=== PATIENT | female | born 1975 | race Caucasian/White ===

== ENCOUNTER 2016-11-03 01:02 | Emergency (ER) | payer SELFPAY ==
[~2016-11-03] VITALS: Ht 154.9 cm; Wt 78.0 kg
[2016-11-03 01:04] VITALS: BP 151/76; PULSE 78; RESP 16; TEMP 97.9; O2SAT 97
--- NOTE | 2016-11-03 01:48 | PD ---
HPI Chief Complaint: Injury Time Seen by Provider: 01:42 Travel History International Travel<30 days: No Contact w/Intl Traveler<30days: No Traveled to known affect area: No History of Present Illness HPI Patient comes in for evaluation of burning pain the plantar aspect her feet that occurred after she walked a hot concrete yesterday. Patient denies any radiation of pain. Patient denies doing anything for this. Patient denies anything making it better. Patient states the pain is worse with walking. Patient also has concerns over 3 abrasions she has on her feet that she is concerned is going to turn into MSSA. Patient whenever she gets sores like this they turn the MSSA. Patient denies doing anything for this or comes emergency Department. Patient states they've been there for a few days. Denies any pain with them. Denies anything making them better or worse. Denies any chest pain, shortness of breath, fevers, abdominal pain, headache, tingling anywhere, or loss or change in bowel or bladder. PFSH Past Medical History Medical History: Denies Significant Hx Social History Alcohol Use: Yes Tobacco Use: Yes Allergies-Medications (Allergen,Severity, Reaction): Uncoded Allergies: PAPER TAPE (Adverse Reaction, Severe, Rash, 11/03/16) Reported Meds & Prescriptions Reported Meds & Active Scripts Active Ibuprofen 600 Mg Tab 600 Mg PO Q8H PRN Bactrim DS (Sulfamethoxazole-Trimethoprim) 800-160 Mg Tab 1 Tab PO BID Mupirocin Topical (Mupirocin) 2 % Oint 1 Applic TOPICAL BID Review of Systems Except as stated in HPI: all other systems reviewed are Neg Physical Exam Narrative GENERAL: Well-developed, overly nourished, in no acute distress, and non-ill appearing. Unkempt appearing. SKIN: Focused skin assessment warm and dry. No lesions, blisters, abrasions, or obvious injuries the plantar surface of bilateral feet. Patient has 2 abrasions noted on the dorsal aspect of the right foot one on the dorsal aspect of the left foot a patient states she is concerned. There is no drainage, fluctuation, crepitus, erythematous, or other signs of infection around her feet. HEAD: Atraumatic. Normocephalic. EYES: Pupils equal and round. EOMI. No scleral icterus. No injection or drainage. ENT: No nasal bleeding or discharge. Mucous membranes pink and moist. NECK: Trachea midline. Supple. No nuclear rigidity. CARDIOVASCULAR: Dorsal pulses 2+, intact, and equal bilaterally. Capillary refill less than 2 seconds. RESPIRATORY: No accessory muscle use. No respiratory distress. MUSCULOSKELETAL: No obvious deformities. No clubbing. No cyanosis. No edema. Full range of motion. NEUROLOGICAL: Awake and alert. No obvious cranial nerve deficits. Motor grossly within normal limits. Normal speech. PSYCHIATRIC: Appropriate mood and affect; insight and judgment normal. Data Data Last Documented VS Vital Signs Date Time Temp Pulse Resp B/P Pulse Ox O2 Delivery O2 Flow Rate FiO2 11/03/16 01:04 97.9 78 16 151/76 97 Room Air MDM Medical Decision Making Medical Screen Exam Complete: Yes Emergency Medical Condition: No Differential Diagnosis Burn, abrasion, laceration, wound infection, other Narrative Course Patient is requesting oral antibiotics for her abrasions as she is concerned over it turning into MSSA as she states any time she gets wounds like this turns into a staph infection and is concerned that the ointment will not be enough. The patient has old abrasions. The abrasions are very superficial and nonrepairable. There was no evidence to suggest foreign bodies. Visual and tactile exams were unremarkable. There was no evidence of neurovascular injury as well. The patient was given signs and symptom warnings for infection, such as increasing pain, redness, swelling, associated heat, pus or fever. The patient was given instructions for timely follow up. The patient agreed with plan of care. Patient in no obvious distress upon re-evaluation. Patient was asked if they wanted to speak to my attending, which the patient did not wish to do at this time. Any questions/concerns in reference to patient diagnosis/condition discussed and clarified prior to patient's discharge. Reinforced sheer importance of close follow up with patient's primary physician or primary care clinic. Instructed patient to return to ED immediately, if symptoms return/ worsen. Pt showed understanding of above instructions. Further instructions and recommendations were detailed in discharge paperwork. Pt ambulated without difficulty out of ED at discharge. Diagnosis Primary Impression: Bilateral foot pain Additional Impression: Abrasions of multiple sites Referrals: [facility] Patient Instructions: Abrasion (ED), Acute Wound Care (ED), General Instructions Additional Instructions: Follow-up with your primary care physician in 3-5 days for reevaluation. Take all medication as prescribed. Keep wound dry and clean as possible using soap and water. Do not soak or submerge wounds. Return to the emergency department if symptoms get worse. Med/Other Pt SpecificInfo: Prescription(s) given Scripts Ibuprofen 600 Mg [id number] Mg PO Q8H PRN (PAIN) #14 TAB Ref 0 Prov:Christiano Bond MD 11/03/16 Sulfamethoxazole-Trimethoprim (Bactrim DS)800-160 Mg Tab1 Tab PO BID #14 TAB Ref 0 Prov:Christiano Bond MD 11/03/16 Mupirocin Topical 2 % Oint1 Applic TOPICAL BID #1 TUBE Ref 0 Prov:Christiano Bond MD 11/03/16 Disposition: 01 DISCHARGE HOME Condition: Stable Elias Wise Nov 03, 2016 01:48
[2016-11-03] MEDS ORDERED: MUPI2OIN TOPICAL (01:50)
[2016-11-03] MEDS ORDERED: BACT800T5 PO (01:50)
[2016-11-03] MEDS ORDERED: IBUP-232 PO (01:50)
== END 2016-11-03 02:08 | disposition home or self-care (01) ==
LOC: NEPD 01:02
DX: M79.671 Pain in right foot (principal); M79.672 Pain in left foot; S90.812A Abrasion, left foot, initial encounter; S90.811A Abrasion, right foot, initial encounter; Z72.0 Tobacco use; X58.XXXA Exposure to other specified factors, initial encounter; Y93.01 Activity, walking, marching and hiking; Y92.9 Unspecified place or not applicable; Y99.9 Unspecified external cause status
CPT/HCPCS: 99284

== ENCOUNTER 2016-11-03 04:43 | Emergency (ER) | payer SELFPAY ==
[~2016-11-03 04:43] MED LIST: BACT800T5 PO; IBUP-232 PO; MUPI2OIN TOPICAL
[2016-11-03 04:44] VITALS: BP 170/83; PULSE 72; RESP 18; TEMP 98.4; O2SAT 97
== END 2016-11-03 04:50 | disposition left against medical advice (07) ==
LOC: NED 04:43
DX: Z53.29 Procedure and treatment not carried out because of patient's decision for other reasons (principal)
CPT/HCPCS: 99281

== ENCOUNTER 2016-11-21 17:41 | Inpatient (IN) | payer MEDICAID ==
[~2016-11-21] VITALS: Ht 157.5 cm; Wt 65.0 kg
[2016-11-21 18:04] VITALS: BP 161/72; PULSE 74; RESP 20; O2SAT 97
[2016-11-21 18:09] VITALS: BP 161/72; PULSE 75; RESP 20; O2SAT 96
[2016-11-21] MEDS ORDERED: TETANUS/DIPHTHERIA TOXOID ADULT 0.5 ML VIAL IM ONE (18:15)
--- NOTE | 2016-11-21 18:21 | PD ---
HPI Chief Complaint: Seizure Time Seen by Provider: 17:56 Travel History International Travel<30 days: No Contact w/Intl Traveler<30days: No Traveled to known affect area: No History of Present Illness HPI 41-year-old female complains of headache, neck pain, left-sided chest wall pain , elbow pain. Patient states that she fell backward hit her head and started having seizure this afternoon. Patient states that she fell in shallow water. Patient denies loss of consciousness. Patient denies any visual change. Patient states that she has aching headache in the back of the head. Patient states that she had neck pain the back of the neck. Patient complained of sharp pain across the left chest wall area. Patient denies any shortness of breath. Patient denies any upper low back pain. Patient denies abdominal pain. Patient complaint laceration to right elbow. Patient states that she has mild pain on the posterior aspect of the right elbow. Patient denies any extremity injury. Patient's not sure of TD booster status. Patient states that she has history of seizure and was on Depakote. Patient states that she ran out of her medication a month ago. 20 12 PM. Patient now states that she was not on Depakote. Patient states that she was on Tegretol for seizure. Patient has not taken her psychiatric medication or Tegretol for the past month. PFSH Past Medical History Cardiovascular Problems: Yes (HTN ) Hepatitis: Yes (c) ?: Not LMP: 11/21 Tubal Ligation: Yes Past Surgical History Tonsillectomy: Yes Social History Alcohol Use: Yes Tobacco Use: Yes Substance Use: No Allergies-Medications (Allergen,Severity, Reaction): Uncoded Allergies: PAPER TAPE (Adverse Reaction, Severe, Rash, 11/03/16) Reported Meds & Prescriptions Reported Meds & Active Scripts Active Reported Zanaflex (Tizanidine HCl) 4 Mg Cap 4 Mg PO TID Neurontin (Gabapentin) 100 Mg Cap 100 Mg PO TID Review of Systems General / Constitutional: No: Fever Eyes: No: Visual changes HENT: Positive: Headaches, Neck Pain Cardiovascular: No: Chest Pain or Discomfort Respiratory: No: Shortness of Breath Gastrointestinal: No: Abdominal Pain Genitourinary: No: Dysuria Musculoskeletal: Positive: Pain Skin: No Rash Neurologic: No: Weakness Psychiatric: No: Depression Endocrine: No: Polydipsia Hematologic/Lymphatic: No: Easy Bruising Physical Exam Narrative GENERAL: Well-nourished, well-developed patient. SKIN: Focused skin assessment warm/dry. HEAD: Normocephalic. EYES: No scleral icterus. No injection or drainage. NECK: Supple, trachea midline. No JVD or lymphadenopathy. CARDIOVASCULAR: Regular rate and rhythm without murmurs, gallops, or rubs. RESPIRATORY: Breath sounds equal bilaterally. No accessory muscle use. GASTROINTESTINAL: Abdomen soft, non-tender, nondistended. MUSCULOSKELETAL: No cyanosis, or edema. BACK: Nontender without obvious deformity. No CVA tenderness. Neurologic exam: Patient's awake and alert. Patient moves all extremity well. Patient came in with c-collar on and was on backboard. Patient took c-collar off herself. Data Data Last Documented VS Vital Signs Date Time Temp Pulse Resp B/P Pulse Ox O2 Delivery O2 Flow Rate FiO2 11/21/16 19:40 76 18 157/77 98 Room Air Orders Complete Blood Count With Diff (11/21/16 18:05) Basic Metabolic Panel (Bmp) (11/21/16 18:05) Prothrombin Time / Inr (Pt) (11/21/16 18:05) Act Partial Throm Time (Ptt) (11/21/16 18:05) Valproic Acid (Depakene) (11/21/16 18:05) Thyroid Stimulating Hormone (11/21/16 18:05) Chest, Single Ap (11/21/16 18:05) Iv Access Insert/Monitor (11/21/16 18:05) Ecg Monitoring (11/21/16 18:05) Oximetry (11/21/16 18:05) Drug Screen, Random Urine (11/21/16 18:05) Alcohol (Ethanol) (11/21/16 18:05) Ct Brain W/O Iv Contrast(Rout) (11/21/16 18:05) Ct Cerv Spine W/O Contrast (11/21/16 18:05) Elbow, Limited (Ap&Lat) (11/21/16 18:05) Tetanus/Diphtheria Tox Adult (Tetanus/Di (11/21/16 18:15) Hydroxyzine Hcl Inj (Vistaril Inj) (11/21/16 20:15) Psych Screen (11/21/16 20:14) Labs Laboratory Tests Test 11/21/16 18:30 White Blood Count 12.6 TH/MM3 Red Blood Count 4.78 MIL/MM3 Hemoglobin 14.7 GM/DL Hematocrit 42.8 % Mean Corpuscular Volume 89.5 FL Mean Corpuscular Hemoglobin 30.8 PG Mean Corpuscular Hemoglobin 34.4 % Concent Red Cell Distribution Width 14.6 % Platelet Count 460 TH/MM3 Mean Platelet Volume 7.2 FL Neutrophils (%) (Auto) 55.1 % Lymphocytes (%) (Auto) 30.5 % Monocytes (%) (Auto) 11.1 % Eosinophils (%) (Auto) 2.5 % Basophils (%) (Auto) 0.8 % Neutrophils # (Auto) 6.9 TH/MM3 Lymphocytes # (Auto) 3.8 TH/MM3 Monocytes # (Auto) 1.4 TH/MM3 Eosinophils # (Auto) 0.3 TH/MM3 Basophils # (Auto) 0.1 TH/MM3 CBC Comment DIFF FINAL Differential Comment Prothrombin Time 10.8 SEC Prothromb Time International 1.0 RATIO Ratio Activated Partial 30.5 SEC Thromboplast Time Sodium Level 137 MEQ/L Potassium Level 3.6 MEQ/L Chloride Level 105 MEQ/L Carbon Dioxide Level 26.1 MEQ/L Anion Gap 6 MEQ/L Blood Urea Nitrogen 10 MG/DL Creatinine 0.74 MG/DL Estimat Glomerular Filtration 86 ML/MIN Rate Random Glucose 91 MG/DL Calcium Level 9.2 MG/DL Thyroid Stimulating Hormone 2.630 uIU/ML 3rd Gen Urine Opiates Screen NEG Urine Barbiturates Screen NEG Valproic Acid (Depakene) Level LESS THAN 3 MCG/ML Urine Amphetamines Screen POS Urine Benzodiazepines Screen NEG Urine Cocaine Screen NEG Urine Cannabinoids Screen POS Ethyl Alcohol Level LESS THAN 3 MG/DL MDM Medical Decision Making Medical Screen Exam Complete: Yes Emergency Medical Condition: Yes Interpretation(s) Last Impressions Head CT 11/21/161804 Signed Impressions: Service Date/Time: Monday, November 21, 2016 19:08 - CONCLUSION: No acute intracranial disease. Juan Astudillo MD Elbow X-Ray 11/21/161804 Signed Impressions: Service Date/Time: Monday, November 21, 2016 18:24 - CONCLUSION: Soft tissue swelling without fracture. Juan Astudillo MD Chest X-Ray 11/21/161804 Signed Impressions: Service Date/Time: Monday, November 21, 2016 18:21 - CONCLUSION: No acute disease. Juan Astudillo MD Cervical Spine CT 11/21/16 1805 Signed Impressions: Service Date/Time: Monday, November 21, 2016 19:08 - CONCLUSION: 1. No fracture. 2. There is minimal degenerative retrolisthesis C4-5. Juan Astudillo MD 2004 p.m. CBC WBC 12.6. Normal differential. BMP within normal limit. Valproic acid less than 3. Urine drug screen positive for amphetamines and cannabis. Differential Diagnosis Differential diagnosis including head injury, neck injury, extremity injury, laceration, breakthrough seizure. Narrative Course 41-year-old female with head injury, neck injury, chest were injury, right elbow injury. Patient fell and had a seizure episode subsequently. Patient has history of seizure and has not been taking her Depakote for the past month. 2009 p.m. Patient now states that she is not on Depakote. She was on Tegretol in the past. Patient states that she ran out of Tegretol a month ago. Patient also on multiple psychiatric medications in the past. Patient states that she ran out of medications for the past month. Patient requesting to see a psychiatrist. Patient does not want a prescription for Tegretol. Patient states that she can't afford her medication anyway. Diagnosis Primary Impression: Closed head injury Qualified Code: S09.90XA - Closed head injury, initial encounter Additional Impressions: Cervical strain Qualified Code: S16.1XXA - Cervical strain, initial encounter Laceration of right elbow Qualified Code: S51.011A - Laceration of right elbow, initial encounter Substance abuse Patient Instructions: General Instructions Med/Other Pt SpecificInfo: Prescription(s) given Scripts Sulfamethoxazole-Trimethoprim (Bactrim DS)800-160 Mg Tab1 Tab PO BID #20 TAB Prov:Jeff Pastor MD 11/21/16 Disposition: 01 DISCHARGE HOME Condition: Stable Jeff Pastor MD Nov 21, 2016 18:20
[2016-11-21 18:35] VITALS: O2SAT 96
[2016-11-21] MEDS ORDERED: NEUR100C PO (18:44)
[2016-11-21] MEDS ORDERED: ZANA4CAP PO (18:44)
--- NOTE | 2016-11-21 18:53 | RADRPT ---
EXAM DATE/TIME: 11/21/2016 18:21 [facility] COMPARISON: No previous studies available for comparison. INDICATIONS : Seizure. MEDICAL HISTORY : Unobtainable. SURGICAL HISTORY : Unobtainable. ENCOUNTER: Initial ACUITY: 1 day PAIN SCORE: 0/10 LOCATION: Bilateral chest FINDINGS: A single view of the chest demonstrates the lungs to be symmetrically aerated without evidence of mas s, infiltrate or effusion. The cardiomediastinal contours are unremarkable. Osseous structures are intact. CONCLUSION: No acute disease. Juan Astudillo MD on November 21, 2016 at 18:51 Board Certified Radiologist. This report was verified electronically.
--- NOTE | 2016-11-21 18:53 | RADRPT ---
EXAM DATE/TIME: 11/21/2016 18:24 [facility] COMPARISON: No previous studies available for comparison. INDICATIONS : Seizure. Fall. MEDICAL HISTORY : Unobtainable. SURGICAL HISTORY : Unobtainable. ENCOUNTER: Initial ACUITY: 1 day PAIN SCORE: 5/10 LOCATION: Right elbow FINDINGS: Two view examination of the right elbow demonstrates soft tissue swelling without joint effusion, fra cture or dislocation. Bony mineralization is normal. CONCLUSION: Soft tissue swelling without fracture. Juan Astudillo MD on November 21, 2016 at 18:51 Board Certified Radiologist. This report was verified electronically.
[2016-11-21 18:58] LABS: AUTOMATED NEUTROPHIL # 6.9 TH/MM3 (1.8-7.7); BASOPHIL # 0.1 TH/MM3 (0-0.2); BASOPHIL % 0.8 % (0.0-2.0); EOSINOPHIL # 0.3 TH/MM3 (0-0.4); EOSINOPHIL % 2.5 % (0.0-4.0); HEMATOCRIT 42.8 % (35.0-46.0); HEMO FLAGS DIFF FINAL; LYMPH % 30.5 % (9.0-44.0); LYMPHOCYTE # 3.8 TH/MM3 (1.0-4.8); MEAN CELL VOLUME 89.5 FL (80.0-100.0); MEAN CORPUSCULAR HEMOGLOBIN 30.8 PG (27.0-34.0); MEAN CORPUSCULAR HGB CONC 34.4 % (32.0-36.0); MONO % 11.1 % (0.0-8.0); NEUT % 55.1 % (16.0-70.0); PLATELET COUNT 460 TH/MM3 (150-450); RED BLOOD COUNT 4.78 MIL/MM3 (4.00-5.30); RED CELL DISTRIBUTION WIDTH 14.6 % (11.6-17.2); WHITE BLOOD COUNT 12.6 TH/MM3 (4.0-11.0)
[2016-11-21 19:04] LABS: APTT (PATIENT) 30.5 SEC (24.3-30.1); PROTHROMBIN TIME - PATIENT 10.8 SEC (9.8-11.6)
[2016-11-21 19:07] LABS: AMPHETAMINE, URINE POS (NEG); BARBITURATES, URINE NEG (NEG); COCAINE, URINE NEG (NEG)
--- NOTE | 2016-11-21 19:25 | RADRPT ---
EXAM DATE/TIME: 11/21/2016 19:08 [facility] COMPARISON: No previous studies available for comparison. INDICATIONS : Siezure today RADIATION DOSE: 30.55 CTDIvol (mGy) MEDICAL HISTORY : Cardiovascular disease. Hypertension. SURGICAL HISTORY : Tubal ligation. Hysterectomy. ENCOUNTER: Initial ACUITY: 1 day PAIN SCALE: 0/10 LOCATION: cranial TECHNIQUE: Multiple contiguous axial images were obtained of the head. Using automated exposure control and adj ustment of the mA and/or kV according to patient size, radiation dose was kept as low as reasonably a chievable to obtain optimal diagnostic quality images. DICOM format image data is available electro nically for review and comparison. FINDINGS: CEREBRUM: The ventricles are normal for age. No evidence of midline shift, mass lesion, hemorrhage or acute in farction. No extra-axial fluid collections are seen. POSTERIOR FOSSA: The cerebellum and brainstem are intact. The 4th ventricle is midline. The cerebellopontine angle i s unremarkable. EXTRACRANIAL: The visualized portion of the orbits is intact. SKULL: The calvaria is intact. No evidence of skull fracture. CONCLUSION: No acute intracranial disease. Juan Astudillo MD on November 21, 2016 at 19:23 Board Certified Radiologist. This report was verified electronically.
[2016-11-21 19:32] LABS: ANION GAP 6 MEQ/L (5-15); BICARBONATE 26.1 MEQ/L (21.0-32.0); BLOOD UREA NITROGEN 10 MG/DL (7-18); CHLORIDE 105 MEQ/L (98-107); GLOMERULAR FILTRATION RATE 86 ML/MIN (>89); POTASSIUM 3.6 MEQ/L (3.5-5.1); SODIUM (NA) 137 MEQ/L (136-145)
--- NOTE | 2016-11-21 19:38 | RADRPT ---
EXAM DATE/TIME: 11/21/2016 19:08 [facility] COMPARISON: No previous studies available for comparison. INDICATIONS : Seizure today,trauma to head and neck pain. RADIATION DOSE: 22.66 CTDIvol (mGy) MEDICAL HISTORY : Cardiovascular disease. Hypertension. SURGICAL HISTORY : Tubal ligation. Hysterectomy. ENCOUNTER: Initial ACUITY: 1 day PAIN SCALE: 0/10 LOCATION: neck TECHNIQUE: Volumetric scanning of the cervical spine was performed. Multiplanar reconstructions in the sagittal, coronal and oblique axial planes were performed. Using automated exposure control and adjustment o f the mA and/or kV according to patient size, radiation dose was kept as low as reasonably achievable to obtain optimal diagnostic quality images. DICOM format image data is available electronically f or review and comparison. FINDINGS: VERTEBRAE: Normal vertebral body height. ALIGNMENT: Minimal retrolisthesis C4 on C5 likely degenerative. C2-C3: The bony spinal canal is normal in size. No evidence of disc bulge or herniation. The neural forami na are bilaterally patent. C3-C4: The bony spinal canal is normal in size. No evidence of disc bulge or herniation. The neural forami na are bilaterally patent. C4-C5: The bony spinal canal is normal in size. No evidence of disc bulge or herniation. The neural forami na are bilaterally patent. C5-C6: The bony spinal canal is normal in size. No evidence of disc bulge or herniation. The neural forami na are bilaterally patent. C6-C7: The bony spinal canal is normal in size. No evidence of disc bulge or herniation. The neural forami na are bilaterally patent. C7-T1: The bony spinal canal is normal in size. No evidence of disc bulge or herniation. The neural forami na are bilaterally patent. CONCLUSION: 1. No fracture. 2. There is minimal degenerative retrolisthesis C4-5. Juan Astudillo MD on November 21, 2016 at 19:35 Board Certified Radiologist. This report was verified electronically.
[2016-11-21 19:40] VITALS: BP 157/77; PULSE 76; RESP 18; O2SAT 98
--- NOTE | 2016-11-21 20:09 | PD ---
Physical Exam Date Seen by Provider: Nov 21, 2016 Time Seen by Provider: 20:07 Narrative 41-year-old female that presents to the ED for evaluation of possible seizure. I was asked my attending to repair a laceration to her right elbow. Please refer to his note. Data Data Last Documented VS Vital Signs Date Time Temp Pulse Resp B/P Pulse Ox O2 Delivery O2 Flow Rate FiO2 11/21/16 19:40 76 18 157/77 98 Room Air Orders Complete Blood Count With Diff (11/21/16 18:05) Basic Metabolic Panel (Bmp) (11/21/16 18:05) Prothrombin Time / Inr (Pt) (11/21/16 18:05) Act Partial Throm Time (Ptt) (11/21/16 18:05) Valproic Acid (Depakene) (11/21/16 18:05) Thyroid Stimulating Hormone (11/21/16 18:05) Chest, Single Ap (11/21/16 18:05) Iv Access Insert/Monitor (11/21/16 18:05) Ecg Monitoring (11/21/16 18:05) Oximetry (11/21/16 18:05) Drug Screen, Random Urine (11/21/16 18:05) Alcohol (Ethanol) (11/21/16 18:05) Ct Brain W/O Iv Contrast(Rout) (11/21/16 18:05) Ct Cerv Spine W/O Contrast (11/21/16 18:05) Elbow, Limited (Ap&Lat) (11/21/16 18:05) Tetanus/Diphtheria Tox Adult (Tetanus/Di (11/21/16 18:15) Labs Laboratory Tests Test 11/21/16 18:30 White Blood Count 12.6 TH/MM3 Red Blood Count 4.78 MIL/MM3 Hemoglobin 14.7 GM/DL Hematocrit 42.8 % Mean Corpuscular Volume 89.5 FL Mean Corpuscular Hemoglobin 30.8 PG Mean Corpuscular Hemoglobin 34.4 % Concent Red Cell Distribution Width 14.6 % Platelet Count 460 TH/MM3 Mean Platelet Volume 7.2 FL Neutrophils (%) (Auto) 55.1 % Lymphocytes (%) (Auto) 30.5 % Monocytes (%) (Auto) 11.1 % Eosinophils (%) (Auto) 2.5 % Basophils (%) (Auto) 0.8 % Neutrophils # (Auto) 6.9 TH/MM3 Lymphocytes # (Auto) 3.8 TH/MM3 Monocytes # (Auto) 1.4 TH/MM3 Eosinophils # (Auto) 0.3 TH/MM3 Basophils # (Auto) 0.1 TH/MM3 CBC Comment DIFF FINAL Differential Comment Prothrombin Time 10.8 SEC Prothromb Time International 1.0 RATIO Ratio Activated Partial 30.5 SEC Thromboplast Time Sodium Level 137 MEQ/L Potassium Level 3.6 MEQ/L Chloride Level 105 MEQ/L Carbon Dioxide Level 26.1 MEQ/L Anion Gap 6 MEQ/L Blood Urea Nitrogen 10 MG/DL Creatinine 0.74 MG/DL Estimat Glomerular Filtration 86 ML/MIN Rate Random Glucose 91 MG/DL Calcium Level 9.2 MG/DL Thyroid Stimulating Hormone 2.630 uIU/ML 3rd Gen Urine Opiates Screen NEG Urine Barbiturates Screen NEG Valproic Acid (Depakene) Level LESS THAN 3 MCG/ML Urine Amphetamines Screen POS Urine Benzodiazepines Screen NEG Urine Cocaine Screen NEG Urine Cannabinoids Screen POS Ethyl Alcohol Level LESS THAN 3 MG/DL MDM Medical Record Reviewed: Yes Supervised Visit with WILFREDO: No Procedures Procedure Narrative LACERATION LOCATION: right elbow LENGTH: 1 cm NUMBER OF STITCHES/JAMES: 2 james REPAIR: The area of the laceration was prepped with Betadine and sterilely draped. The laceration was infiltrated with 1% Xylocaine. The wound was copiously irrigated and explored without evidence of foreign body, tendon injury or neurovascular injury. The wound was closed using sterile stapler. This was a 1 layer repair. A sterile dressing was applied. The patient was advised to keep the dressing clean and dry. Patient tolerated the procedure well. Lazaro Gilliland Nov 21, 2016 20:09
[2016-11-21] MEDS ORDERED: BACT800T5 PO (22:09)
--- NOTE | 2016-11-22 08:26 | PD.PSY.CON ---
Provisional Diagnosis Admission Date History of Present Illness Service Psychiatry Consult Requested By Primary Care Physician Unknown Past Family Social History Uncoded Allergies: PAPER TAPE (Adverse Reaction, Severe, Rash, 11/03/16) Active Scripts Sulfamethoxazole-Trimethoprim (Bactrim DS)800-160 Mg Tab1 Tab PO BID #20 TAB Prov:Jeff Pastor MD 11/21/16 Reported Medications Tizanidine (Zanaflex)4 Mg Cap4 Mg PO TID Ref 0 11/21/16 Gabapentin (Neurontin)100 Mg [id number] Mg PO TID #90 CAP Ref 0 11/21/16 Discontinued Scripts Ibuprofen 600 Mg [id number] Mg PO Q8H PRN (PAIN) #14 TAB Ref 0 Prov:Christiano Bond MD 11/03/16 Sulfamethoxazole-Trimethoprim (Bactrim DS)800-160 Mg Tab1 Tab PO BID #14 TAB Ref 0 Prov:Christiano Bond MD 11/03/16 Mupirocin Topical 2 % Oint1 Applic TOPICAL BID #1 TUBE Ref 0 Prov:Christiano Bond MD 11/03/16 Physical Exam Vital Signs Vital Signs Date Time Temp Pulse Resp B/P Pulse Ox O2 Delivery O2 Flow Rate FiO2 11/21/16 19:40 76 18 157/77 98 Room Air Assessment & Plan Assessment & Plan Estimated LOS: Bradly Lutz MD Nov 22, 2016 08:26
[2016-11-22] MEDS ORDERED: ACETAMINOPHEN 325 MG TAB PO ONE (09:00)
[2016-11-22] MEDS ORDERED: diphenhydrAMINE HCL 50 MG/ML VIAL IM STA (09:37)
[2016-11-22] MEDS ORDERED: LORazepam 2 MG/ML VIAL IM STA (09:37)
[2016-11-22] MEDS ORDERED: HALOPERIDOL LACTATE 5 MG/ML AMP IM STA (09:37)
[2016-11-22 10:12] VITALS: BP 146/64; PULSE 53; RESP 18; O2SAT 99
[2016-11-22] MEDS ORDERED: MAGNESIUM HYDROXIDE SUSP 30 ML CUP PO PRN (12:30)
[2016-11-22] MEDS ORDERED: ALUMINUM/MAGNESIUM/SIMETH 30 ML CUP PO PRN (12:30)
[2016-11-22] MEDS ORDERED: diphenhydrAMINE HCL 50 MG CAP PO PRN (12:30)
[2016-11-22] MEDS ORDERED: BENZTROPINE MESYLATE 2 MG/2 ML VIAL IM PRN (12:30)
[2016-11-22] MEDS ORDERED: LORazepam 2 MG/ML VIAL IM PRN (12:30)
[2016-11-22] MEDS ORDERED: BENZTROPINE MESYLATE 1 MG TAB PO PRN (12:30)
--- NOTE | 2016-11-22 12:36 | HHI.HP ---
Provisional Diagnosis Admission Date Nov 22, 2016 at 11:25 [place] I. 1. Brief psychotic disorder Rule out component of drug induced psychotic disorder Rule out primary psychotic illness or mood disorder with psychotic features Rule out raman-ictal psychosis 2. Polysubstance abuse including amphetamines and cannabinoids [place] II. Deferred [place] V. GAF is 30 presently Certification of Person's Competence To Provide Express and Informed Consent I have personally examined Luciana Lynn , a person being served at [facility] on, Nov 22, 2016 12:20. Express and informed consent means consent voluntarily given in writing, by a competent person, after sufficient explanation and disclosure of the subject matter involved to enable the person to make a knowing and willful decision without any element of force, fraud, deceit, duress, or other form of constraint or coercion. This person is 18 years of age or older, is not now known to be incompetent to consent to treatment with a guardian advocate, and does not have a health care surrogate or proxy currently making medical treatment decisions. I have found this person to be one of the following: [] Competent to provide express and informed consent, as defined above, for voluntary admission to this facility and is competent to provide express and informed consent for treatment. He/she has the consistent capacity to make well reasoned, willful, and knowing decisions concerning his or her medical or mental health treatment. The person fully and consistently understands the purpose of the admission for examination/placement and is fully capable of personally exercising all rights assured [place] [] Incompetent to provide express and informed consent to voluntary admission, and this is incompetent to provide express and informed consent to treatment. The person must be transferred to involuntary status and a petition for a guardian advocate filed with the Circuit Court. [x] Refusing to provide express and informed consent to voluntary admission but is competent to provide express and informed consent for treatment. The person must be discharged or transferred to involuntary status. Form shall be completed within 24 hours of a person's arrival at the receiving facility and filed in the clinical record of each person: 1. Admitted on a voluntary basis 2. Permitted to provide express and informed consent to his/her own treatment 3. Allowed to transfer from involuntary to voluntary status 4. Prior to permitting a person to consent to his or her own treatment after having been previously found incompetent to consent to treatment. History of Present Illness Capacity: Has Capacity HPI Ms. Lynn is a 41-year-old female with a reported history of borderline personality disorder and PTSD who presents on a voluntary basis with complaints of seizure. From the ED provider notes, it appears that the patient requested psychiatric evaluation. She is not under a Fish act at the time of my evaluation. Reviewing the electronic medical record, I see no prior psychiatric contact within our system. Patient seen and examined. Chart reviewed. Case discussed with nursing staff. On my examination today, the patient presents as extremely emotionally labile. She tells me that she came down from [place] to get her niece off the streets but wound up homeless herself. She has a pronounced jehovah's witness preoccupation and insists that she is hearing spiritual voices because "I live in the supernatural." She denies any command auditory hallucinations. She initially denies any suicidal ideation but then threatens to jump off of a bridge. She feels that she is possessed with "a demon spirit." She says that she is compelled to "bash my head" against a hard object in order to relieve herself of the demon spirit. She denies any homicidal ideation. Thought process with significant loosening of associations. Speech pressured. No depressive symptoms. Remainder of the psychiatric ROS is negative. Past psychiatric history: Patient reports a history of borderline personality disorder and PTSD. She was reportedly under the care of a psychiatrist in [place] but cannot remember what drugs that she was taking. She says that she was most recently psychiatrically admitted about 2 years ago and says that she had a suicidal overdose around the same time. She denies a history of nonsuicidal self-injurious behavior. Family history: Patient reports that her family is afflicted by "every disease" in psychiatry. She says that her daughter engages in nonsuicidal self- injurious behavior. Chemical dependency history: The patient reports that she has been using methamphetamines for the last few months. She also smokes cannabis. Social history: The patient is from [place]. She is homeless. She is with 3 children. She has 5 grandchildren. Denies any or legal history. She is a Yazidi. Denies any access to guns or firearms. Review of Systems ROS Limitations: Psychotic, Poor Historian Except as stated in HPI: all other systems reviewed are Neg Past Psych History Psychological trauma history No reported trauma history to me Violence risk - others (6 mos) Indeterminate. Patient is psychotic and unpredictable. Violence risk - self (6 mos) Elevated. Threatening suicide. Psychotic and unpredictable. Past Family Social History Uncoded Allergies: PAPER TAPE (Adverse Reaction, Severe, Rash, 11/03/16) Past Medical History Includes a history of seizure disorder on Depakote. Depakote level undetectable today. Active Scripts Sulfamethoxazole-Trimethoprim (Bactrim DS)800-160 Mg Tab1 Tab PO BID #20 TAB Prov:Jeff Pastor MD 11/21/16 Reported Medications Tizanidine (Zanaflex)4 Mg Cap4 Mg PO TID Ref 0 11/21/16 Gabapentin (Neurontin)100 Mg [id number] Mg PO TID #90 CAP Ref 0 11/21/16 Discontinued Scripts Ibuprofen 600 Mg [id number] Mg PO Q8H PRN (PAIN) #14 TAB Ref 0 Prov:Christiano Bond MD 11/03/16 Sulfamethoxazole-Trimethoprim (Bactrim DS)800-160 Mg Tab1 Tab PO BID #14 TAB Ref 0 Prov:Christiano Bond MD 11/03/16 Mupirocin Topical 2 % Oint1 Applic TOPICAL BID #1 TUBE Ref 0 Prov:Christiano Bond MD 11/03/16 Cannot give medication list to me because of her psychiatric impairment Patient's Strengths (min. 2) In a monitored setting. Verbally fluent. Physical Exam Physical exam completed by ED provider. On my examination today, the patient appears to be in no acute physical distress. No motor abnormalities noted although the patient is quite fidgety. No ictal activity appreciated. Labs and vitals reviewed: Vital Signs Vital Signs Date Time Temp Pulse Resp B/P Pulse Ox O2 Delivery O2 Flow Rate FiO2 11/22/16 10:12 53 18 146/64 99 Room Air Lab Results Laboratory Tests Test 11/21/16 18:30 White Blood Count 12.6 TH/MM3 Red Blood Count 4.78 MIL/MM3 Hemoglobin 14.7 GM/DL Hematocrit 42.8 % Mean Corpuscular Volume 89.5 FL Mean Corpuscular Hemoglobin 30.8 PG Mean Corpuscular Hemoglobin 34.4 % Concent Red Cell Distribution Width 14.6 % Platelet Count 460 TH/MM3 Mean Platelet Volume 7.2 FL Neutrophils (%) (Auto) 55.1 % Lymphocytes (%) (Auto) 30.5 % Monocytes (%) (Auto) 11.1 % Eosinophils (%) (Auto) 2.5 % Basophils (%) (Auto) 0.8 % Neutrophils # (Auto) 6.9 TH/MM3 Lymphocytes # (Auto) 3.8 TH/MM3 Monocytes # (Auto) 1.4 TH/MM3 Eosinophils # (Auto) 0.3 TH/MM3 Basophils # (Auto) 0.1 TH/MM3 CBC Comment DIFF FINAL Differential Comment Prothrombin Time 10.8 SEC Prothromb Time International 1.0 RATIO Ratio Activated Partial 30.5 SEC Thromboplast Time Sodium Level 137 MEQ/L Potassium Level 3.6 MEQ/L Chloride Level 105 MEQ/L Carbon Dioxide Level 26.1 MEQ/L Anion Gap 6 MEQ/L Blood Urea Nitrogen 10 MG/DL Creatinine 0.74 MG/DL Estimat Glomerular Filtration 86 ML/MIN Rate Random Glucose 91 MG/DL Calcium Level 9.2 MG/DL Thyroid Stimulating Hormone 2.630 uIU/ML 3rd Gen Urine Opiates Screen NEG Urine Barbiturates Screen NEG Valproic Acid (Depakene) Level LESS THAN 3 MCG/ML Urine Amphetamines Screen POS Urine Benzodiazepines Screen NEG Urine Cocaine Screen NEG Urine Cannabinoids Screen POS Ethyl Alcohol Level LESS THAN 3 MG/DL Last Impressions Head CT 11/21/161804 Signed Impressions: Service Date/Time: Monday, November 21, 2016 19:08 - CONCLUSION: No acute intracranial disease. Juan Astudillo MD Elbow X-Ray 11/21/161804 Signed Impressions: Service Date/Time: Monday, November 21, 2016 18:24 - CONCLUSION: Soft tissue swelling without fracture. Juan Astudillo MD Chest X-Ray 11/21/161804 Signed Impressions: Service Date/Time: Monday, November 21, 2016 18:21 - CONCLUSION: No acute disease. Juan Astudillo MD Cervical Spine CT 11/21/161804 Signed Impressions: Service Date/Time: Monday, November 21, 2016 19:08 - CONCLUSION: 1. No fracture. 2. There is minimal degenerative retrolisthesis C4-5. Juan Astudillo MD Mental Status Examination Patient is in hospital gown. She is somewhat disheveled. She is awake and alert and oriented to person and hospital at least. No motor abnormalities noted although the patient is quite fidgety. Speech is pressured and rambling. Focus and concentration impaired. Language and fund of knowledge difficult to assess because of the psychosis. Memory likely somewhat confabulated with psychotic features. Mood dysphoric and affect labile. Thought process with significant loosening of associations. Yazidism delusions noted. Appears internally preoccupied. Endorses suicidal ideation as noted above. No reported urge to hurt herself on the inpatient psychiatric unit. No homicidal ideation. Insight and judgment are presently poor. Assessment & Plan Problem List: (1) Brief psychotic disorder ICD Code: F23 (2) Polysubstance abuse ICD Code: F19.10 Assessment & Plan 41-year-old female with psychiatric history as detailed above who is presently voluntarily in the emergency room and requesting psychiatric evaluation. I find the patient to be quite emotionally labile with jehovah's witness delusions and making threats of suicide. My differential diagnosis would include a primary psychotic disorder, a mood disorder with psychotic features such as a bipolar disorder, a drug-induced psychotic disorder or a seizure related phenomenon. In any event, the patient appears severely decompensated with respect to her psychiatric symptomatology and requires psychiatric admission at this time for safety, observation and stabilization. Admit inpatient. I have completed a Fish act, and enlist the patient is much improved in the morning will likely require petition for involuntary psychiatric hospitalization. Consult to neurology given history of seizure. Check EEG. Seizure and fall precautions. I will resume Depakote DR at a dose of 500 mg twice daily, which is likely to be within the therapeutic range given her weight. Check LFTs. Platelets not decreased. Check CBC, CMP, lipid panel and hemoglobin A1c in the morning. Zyprexa 5 mg at bedtime for psychosis with plans to titrate to effect. Ativan as needed for anxiety, Cogentin as needed for EPS, Benadryl as needed for sleep. Vitals every shift. Counselor to see and to obtain collateral. Disposition planning. Estimated length of stay: 7-9 days. Discharge Planning Pending psychiatric stabilization Request HC Surrog/Guard Advoc?: No (not at this time) Bradly Jiang MD Nov 22, 2016 12:36
[2016-11-22 14:21] LABS: INDIRECT BILIRUBIN 0.5 MG/DL (0.0-0.8); TOTAL BILIRUBIN ADULT 0.7 MG/DL (0.2-1.0)
[2016-11-22] MEDS ORDERED: HALOPERIDOL LACTATE 5 MG/ML AMP IM PRN (15:30)
[2016-11-22] MEDS: ACETAMINOPHEN 325 MG TAB PO PRN ×2 (15:35→21:12)
[2016-11-22 16:00] VITALS: BP 143/67; PULSE 83; RESP 16; TEMP 98.3
--- NOTE | 2016-11-22 17:33 | MB ---
cc: SUDHA SALAS M.D. DATE OF CONSULTATION: 11/22/2016 DATE OF : 1975, 41 years old. REASON FOR CONSULTATION: History of seizure, antiepileptic use. HISTORY OF PRESENT ILLNESS: The patient is a 41-year-old woman. History is taken mostly from the chart with a history of borderline personality, PTSD with a history of seizures. She states she has had seizures since the age of 19, has been on possibly Tegretol. She cannot tell me the dose. She states 40 milligrams which is inaccurate. She states she may have been on Depakote at some point in time but has not been on it for some time, confused, concerned more about scabs on her arms and legs. She cannot tell me what type of seizures, why they occur, how many she has. She is awake and alert, but confused. She knows she is in the hospital. Pupils reactive. Face is symmetrical. Motor-figueredo she moves everything equally. I do not see any lateralizing weakness. Gait is withheld. She is in bed. LABORATORY DATA: Labs are reviewed. White count 12.6, platelets are 460,000. Her coag panel, PTT is 30.5. Chemistry: AST 55, ALT 58, total protein 8.6, albumin 4.4. TSH 2.63, hCG less than 1. Toxicology screen positive for cannabinoids, amphetamines. IMAGING STUDIES: CT head, no acute disease. IMPRESSION: The patient is a 41 year-old woman with possible history of epilepsy. Looking at the note from psychiatry they restarted her on Depakote 500 mg b.i.d. Certainly that can be continued, however watch her liver function studies. If there is an issue with that then certainly switch her over to carbamazepine and start her at 200 mg twice a day. Will get an EEG. Maintain seizure precautions and anticipate a followup Depakote level in 48 hours. Maintain seizure precautions and Ativan should there be a witnessed seizure. Continue current care. Please call with any questions or concerns. MD SAMMIE Ovalles/EMMANUEL /3:50 PM /4:48 PM
[2016-11-22] MEDS: DIVALPROEX DR 500 MG TABEC PO SCH (21:10)
[2016-11-22] MEDS: OLANZapine ODT 5 MG TAB PO SCH (21:10)
[2016-11-22] MEDS: LORazepam 1 MG TAB PO PRN (23:16)
[2016-11-23] MEDS: ACETAMINOPHEN 325 MG TAB PO PRN ×2 (02:33→07:05)
[2016-11-23 06:16] VITALS: BP 134/70; PULSE 101; RESP 18; TEMP 97.6; O2SAT 95
[2016-11-23] MEDS: LORazepam 1 MG TAB PO PRN ×2 (07:04→17:29)
[2016-11-23 08:54] LABS: AUTOMATED NEUTROPHIL # 24.6 TH/MM3 (1.8-7.7); BASOPHIL % 0.1 % (0.0-2.0); EOSINOPHIL % 0.1 % (0.0-4.0); LYMPH % 6.1 % (9.0-44.0); LYMPHOCYTE # 1.7 TH/MM3 (1.0-4.8); MEAN CELL VOLUME 90.8 FL (80.0-100.0); MONO % 8.2 % (0.0-8.0); NEUT % 85.5 % (16.0-70.0); PLATELET COUNT 465 TH/MM3 (150-450); RED BLOOD COUNT 5.06 MIL/MM3 (4.00-5.30); RED CELL DISTRIBUTION WIDTH 14.5 % (11.6-17.2); WHITE BLOOD COUNT 28.8 TH/MM3 (4.0-11.0)
[2016-11-23] MEDS: DIVALPROEX DR 500 MG TABEC PO SCH ×2 (09:00→20:55)
[2016-11-23] MEDS: REMOVE OLD PATCH T-DERMAL SCH (09:00)
[2016-11-23] MEDS: NICOTINE 21 MG/24 HR PATCH T-DERMAL SCH (09:00)
[2016-11-23 09:16] LABS: ALKALINE PHOSPHATASE 96 U/L (45-117); ALT (GPT) 49 U/L (10-53); ANION GAP 9 MEQ/L (5-15); AST (GOT) 46 U/L (15-37); BICARBONATE 24.6 MEQ/L (21.0-32.0); BLOOD UREA NITROGEN 4 MG/DL (7-18); CHLORIDE 99 MEQ/L (98-107); GLOMERULAR FILTRATION RATE 109 ML/MIN (>89); HDL CHOLESTEROL 83.9 MG/DL (40.0-60.0); LDL CHOLESTEROL 115 MG/DL (0-99); POTASSIUM 3.3 MEQ/L (3.5-5.1); SODIUM (NA) 133 MEQ/L (136-145)
[2016-11-23 09:36] LABS: HEMO FLAGS AUTO DIFF
[2016-11-23 10:21] LABS: BANDS 12 % (0-6); NEUTROPHIL # MANUAL DIFF 23.3 TH/MM3 (1.8-7.7); PLATELET ESTIMATE SMEAR HIGH (NORMAL); PLATELET MORPHOLOGY NORMAL (NORMAL); POLYS (SEG NEUTROPHILS) 69 % (16-70); SCAN/DIFF FINAL DIFF MANUAL; WBC DIFF SAMPLE 100
--- NOTE | 2016-11-23 10:43 | HHI.PYPN ---
Subjective Remarks Patient seen and examined with counselor and nurse. Chart reviewed. Case discussed with nursing staff who reports patient has been complaining of R elbow pain and has been presenting in a dramatic fashion. On my examination today, there is absolutely no evidence of ongoing psychosis. Her thought process is linear and logical. As reported by the nurse, she does complain of R elbow pain. Externalizing/cluster B personality traits noted. Affect somewhat labile and irritable. No SI or HI. No side effects from medications. No physical complaints. Review of Systems Except as stated in HPI: all other systems reviewed are Neg Objective Alert: Yes [place]: Person, Place (at least) Mood: Anxious Affect: Labile, Other (irritable) Memory Intact: Comment (intact on clinical exam) Hallucinations: Other (No AVH) Delusions: No Delusion Type: Other (No delusions) Suicidal: Ideation (No SI) Homicidal: Ideation (No HI) Insight/Judgment Fair Remarks No motoric abnormalities appreciated. Thought process linear. Speech a little loud and angry but otherwise within normal limits. Grooming and hygiene fair. I do appreciate a 4-5cm area of erythema and swelling on the posterior aspect of the right elbow. Nurse reported some purulence earlier, but I appreciate none now. Labs Test 11/23/16 07:08 White Blood Count 28.8 TH/MM3 Red Blood Count 5.06 MIL/MM3 Hemoglobin 15.2 GM/DL Hematocrit 46.0 % Mean Corpuscular Volume 90.8 FL Mean Corpuscular Hemoglobin 30.0 PG Mean Corpuscular Hemoglobin 33.0 % Concent Red Cell Distribution Width 14.5 % Platelet Count 465 TH/MM3 Mean Platelet Volume 7.2 FL Neutrophils (%) (Auto) 85.5 % Lymphocytes (%) (Auto) 6.1 % Monocytes (%) (Auto) 8.2 % Eosinophils (%) (Auto) 0.1 % Basophils (%) (Auto) 0.1 % Neutrophils # (Auto) 24.6 TH/MM3 Lymphocytes # (Auto) 1.7 TH/MM3 Monocytes # (Auto) 2.3 TH/MM3 Eosinophils # (Auto) 0.0 TH/MM3 Basophils # (Auto) 0.0 TH/MM3 CBC Comment AUTO DIFF Differential Total Cells 100 Counted Neutrophils % (Manual) 69 % Band Neutrophils % 12 % Lymphocytes % 10 % Monocytes % 9 % Neutrophils # (Manual) 23.3 TH/MM3 Differential Comment FINAL DIFF MANUAL Platelet Estimate HIGH Platelet Morphology Comment NORMAL Red Cell Morphology Comment NORMAL Sodium Level 133 MEQ/L Potassium Level 3.3 MEQ/L Chloride Level 99 MEQ/L Carbon Dioxide Level 24.6 MEQ/L Anion Gap 9 MEQ/L Blood Urea Nitrogen 4 MG/DL Creatinine 0.60 MG/DL Estimat Glomerular Filtration 109 ML/MIN Rate Random Glucose 118 MG/DL Calcium Level 9.1 MG/DL Total Bilirubin 1.0 MG/DL Aspartate Amino Transf 46 U/L (AST/SGOT) Alanine Aminotransferase 49 U/L (ALT/SGPT) Alkaline Phosphatase 96 U/L Total Protein 8.1 GM/DL Albumin 3.7 GM/DL Triglycerides Level 46 MG/DL Cholesterol Level 208 MG/DL LDL Cholesterol 115 MG/DL HDL Cholesterol 83.9 MG/DL Cholesterol/HDL Ratio 2.47 RATIO Labs reviewed. Leukocytosis noted. Mild hypokalemia noted; repleted. Vitals/IOs Vital Signs Date Time Temp Pulse Resp B/P Pulse Ox O2 Delivery O2 Flow Rate FiO2 11/23/16 06:16 97.6 101 18 134/70 95 11/22/16 10:12 Room Air Assessment & Plan Problem List: (1) Polysubstance abuse with drug-induced psychotic disorder, psychosis now resolved. F19.259. (2) Cluster B personality traits, rule out personality disorder Assessment & Plan Given rapid resolution of patient's psychotic symptoms, I now suspect these were largely substance-induced, although raman-ictal psychosis cannot be ruled out. I will continue patient's Zyprexa as ordered as this may help regulate affective lability that I suspect is related to cluster B personality style. Continue Depakote as ordered for history of seizure. VPA and ammonia level ordered. Neurology input appreciated. EEG pending. Consult to the hospitalist for elbow pain, leukocytosis; Bactrim DS BID; Ultram 50mg x 1; further management of this issue per hospitalist. Continue other medications and care as ordered. I have asked patient to sign into hospital voluntarily, and she has agreed. Justification for Cont. Inpt. Complicating condition. Risk for decompensation. Discharge Planning Pending stabilization. Request HC Surrog/Guard Advoc?: No Bradly Jiang MD Nov 23, 2016 10:43
[2016-11-23] MEDS ORDERED: traMADol HCL 50 MG TAB PO ONE (10:45)
[2016-11-23] MEDS ORDERED: SULFAMETHOXAZOLE-TRIMETHOPRIM DS 800-160 MG TAB PO SCH (11:00)
[2016-11-23] MEDS ORDERED: POTASSIUM CHLORIDE 20 MEQ CONTROLLED RELEASE TAB PO ONE (13:00)
[2016-11-23] MEDS ORDERED: Vancomycin Consult Pharmacy 1 EA OTHER SCH (15:45)
[2016-11-23] MEDS ORDERED: LACTOBACILLUS ACIDOPHILUS TAB PO ONE (15:45)
--- NOTE | 2016-11-23 16:30 | PD.CONS ---
[facility] By [facility]ry team Reason for Consult Leukocytosis, right elbow purulent drainage Primary Care Physician Unknown Diagnoses: History of Present Illness Written by Dru Soto, acting as scribe for Dr. Thomas on 11/23/16 at 16:03. This note was transcribed by meghann PEDROZA. I, Dr. La Thomas personally performed the history, physical exam, and medical decision making; and confirmed the accuracy of the information in the transcribed note. Authenticated by Dr. La Thomas 11/23/16 at 16:03. Patient is a 41-year-old female with primary medical history of seizure disorder, PTSD, borderline personality, hep C, HTN who came into the hospital for complaints of headache, neck pain, left-sided chest wall pain, elbow pain after a fall. Patient states she fell backward and hit her head because of his seizure episode. Patient states she landed puddle of murky water , the ground was slippery with algae. Patient was worked up in the ED, CT of the head showed no acute intracranial disease. Cervical spine CT showed no fracture. There is a minimal degenerative retrolisthesis C4 to C5. Chest x- ray showed no acute disease. Right elbow x-ray showed soft tissue swelling without fracture. She had a right elbow wound where in she said that in the ED they have with james in it. She is admitted to inpatient psychiatry unit for further evaluation of her psychiatric condition. Consulted for medical management of leukocytosis, right elbow. Drainage Patient complains of right elbow pain, swelling, it's been draining purulent drain. Patient reports fevers and chills unable to tell temperature but feels hot. Denies any headaches, chest pain, palpitations, dizziness. Denies abdominal pain, dysuria, nausea, vomiting, diarrhea. Review of Systems Except as stated in HPI: all other systems reviewed are Neg Past Family Social History Allergies: Uncoded Allergies: PAPER TAPE (Adverse Reaction, Severe, Rash, 11/03/16) Past Medical History PTSD Borderline personality Seizures. Hepatitis C - not started on any medication and process to go to GI doctors in [place] Hypertension Past Surgical History Plates place on her left arm Both tubes are tied Reported Medications Reported Meds & Active Scripts Active Bactrim DS (Sulfamethoxazole-Trimethoprim) 800-160 Mg Tab 1 Tab PO BID Reported Zanaflex (Tizanidine HCl) 4 Mg Cap 4 Mg PO TID Neurontin (Gabapentin) 100 Mg Cap 100 Mg PO TID Active Ordered Medications Current Medications Medications (Trade) Dose Ordered Sig/Mai Route Start Time Stop Time Status Last Admin (Ativan) 1 mg Q6H PRN PO 11/22/16 12:30 11/23/16 07:04 (Ativan Inj) 1 mg Q6H PRN IM 11/22/16 12:30 11/23/16 10:40 (Benadryl) 50 mg HS PRN PO 11/22/16 12:30 (Tylenol) 650 mg Q4H PRN PO 11/22/16 12:30 11/23/16 07:05 (Milk Of Magnesia Liq) 30 ml DAILY PRN PO 11/22/16 12:30 (Mag-Al Plus Susp Liq) 30 ml Q6H PRN PO 11/22/16 12:30 (Habitrol 21 Mg Patch.24 Hr) 1 patch DAILY T-DERMAL 11/23/16 09:00 11/23/16 09:00 (Cogentin) 1 mg Q12H PRN PO 11/22/16 12:30 11/22/16 21:13 (Cogentin Inj) 1 mg Q12H PRN IM 11/22/16 12:30 Miscellaneous Information 1 DAILY T-DERMAL 11/23/16 09:00 11/23/16 09:00 (ZyPREXA ZYDIS ODT) 5 mg HS PO 11/22/16 21:00 11/22/16 21:10 Divalproex Sodium 500 mg 500 mg BID PO 11/22/16 21:00 11/23/16 09:00 Pharmacy Profile Note 0 ml @ 0 mls/hr UNSCH OTHER 11/23/16 15:45 (Vancomycin Inj/ NS 250 ml Inj) 250 ml @ 250 mls/hr Q12H IV 11/23/16 16:00 (Lactinex) 1 tab Q12HR PO 11/23/16 21:00 (Lactinex) 1 tab ONCE ONCE PO 11/23/16 15:45 11/23/16 15:46 ([place] 5-325 Mg) 1 tab Q4H PRN PO 11/23/16 15:45 Miscellaneous Information SPECIFIC LAB TO BE DRAWN:VANCOMYCIN TROUGH DATE TO... ONCE ONCE .XX 11/25/16 03:45 11/25/16 03:46 Family History Heart problems, and mental problems in the family And has renal cancer, grandmother has breast cancer Social History Occasional alcohol use Current day smoker 1 pack per day Illicit drug use, smokes cannabis, IV drug use amphetamines last use was 3 days ago - injects on the left forearm Physical Exam Vital Signs Vital Signs Date Time Temp Pulse Resp B/P Pulse Ox O2 Delivery O2 Flow Rate FiO2 11/23/16 06:16 97.6 101 18 134/70 95 Physical Exam GENERAL: This is a disheveled, well-developed patient, in no apparent distress. SKIN: No rashes, ecchymoses or lesions. Cool and dry. HEAD: Normocephalic. No temporal or scalp tenderness. EYES: Pupils equal round and reactive. No scleral icterus. No injection or drainage. ENT: Nose without bleeding. Throat without erythema. Uvula midline. Airway patent. NECK: Trachea midline. CARDIOVASCULAR: Regular rate and rhythm without murmurs, gallops, or rubs. RESPIRATORY: Clear to auscultation. Breath sounds equal bilaterally. No wheezes , rales, or rhonchi. GASTROINTESTINAL: Abdomen soft, non-tender, nondistended. Bowel sounds active 4. No guarding. MUSCULOSKELETAL: Extremities without clubbing, cyanosis, or edema. Right elbow edema, erythema, purulent drainage, [address] NEUROLOGICAL: Awake and alert. No focal neuro deficit. Motor and sensory grossly within normal limits. Normal speech. Laboratory Laboratory Tests Test 11/23/16 11/23/16 07:08 14:41 White Blood Count 28.8 Red Blood Count 5.06 Hemoglobin 15.2 Hematocrit 46.0 Mean Corpuscular Volume 90.8 Mean Corpuscular Hemoglobin 30.0 Mean Corpuscular Hemoglobin 33.0 Concent Red Cell Distribution Width 14.5 Platelet Count 465 Mean Platelet Volume 7.2 Neutrophils (%) (Auto) 85.5 Lymphocytes (%) (Auto) 6.1 Monocytes (%) (Auto) 8.2 Eosinophils (%) (Auto) 0.1 Basophils (%) (Auto) 0.1 Neutrophils # (Auto) 24.6 Lymphocytes # (Auto) 1.7 Monocytes # (Auto) 2.3 Eosinophils # (Auto) 0.0 Basophils # (Auto) 0.0 CBC Comment AUTO DIFF Differential Total Cells 100 Counted Neutrophils % (Manual) 69 Band Neutrophils % 12 Lymphocytes % 10 Monocytes % 9 Neutrophils # (Manual) 23.3 Differential Comment FINAL DIFF MANUAL Platelet Estimate HIGH Platelet Morphology Comment NORMAL Red Cell Morphology Comment NORMAL Sodium Level 133 Potassium Level 3.3 Chloride Level 99 Carbon Dioxide Level 24.6 Anion Gap 9 Blood Urea Nitrogen 4 Creatinine 0.60 Estimat Glomerular Filtration 109 Rate Random Glucose 118 Calcium Level 9.1 Total Bilirubin 1.0 Aspartate Amino Transf 46 (AST/SGOT) Alanine Aminotransferase 49 (ALT/SGPT) Alkaline Phosphatase 96 Total Protein 8.1 Albumin 3.7 Triglycerides Level 46 Cholesterol Level 208 LDL Cholesterol 115 HDL Cholesterol 83.9 Cholesterol/HDL Ratio 2.47 Lactic Acid Level 2.3 Date/Time Procedure Status Source Growth 11/23/16 14:50 Aerobic Blood Culture Received Blood Peripheral Pending 11/23/16 14:50 Anaerobic Blood Culture Received Blood Peripheral Pending Result Diagram: 11/23/1608 11/23/16707 Imaging Last Impressions Head CT 11/21/161804 Signed Impressions: Service Date/Time: Monday, November 21, 2016 19:08 - CONCLUSION: No acute intracranial disease. Juan Astudillo MD Elbow X-Ray 11/21/161804 Signed Impressions: Service Date/Time: Monday, November 21, 2016 18:24 - CONCLUSION: Soft tissue swelling without fracture. Juan Astudillo MD Chest X-Ray 11/21/161804 Signed Impressions: Service Date/Time: Monday, November 21, 2016 18:21 - CONCLUSION: No acute disease. Juan Astudillo MD Cervical Spine CT 11/21/161804 Signed Impressions: Service Date/Time: Monday, November 21, 2016 19:08 - CONCLUSION: 1. No fracture. 2. There is minimal degenerative retrolisthesis C4-5. Juan Astudillo MD Assessment and Plan Problem List: (1) Laceration of right elbow ICD Code: S51.011A Status: Acute (2) Polysubstance abuse with drug-induced psychotic disorder, psychosis now resolved. F19.259. Status: Acute (3) Sepsis affecting skin ICD Code: A41.9 Status: Acute (4) HTN (hypertension) ICD Code: I10 Status: Chronic (5) Polysubstance abuse ICD Code: F19.10 Status: Acute Assessment and Plan Patient is a 41-year-old female with primary medical history of seizure disorder, PTSD, borderline personality, hep C, HTN who came into the hospital for complaints of headache, neck pain, left-sided chest wall pain, elbow pain after a fall. Patient states she fell backward and hit her head because of his seizure episode. Patient states she landed puddle of murky water , the ground was slippery with algae. Patient was worked up in the ED, CT of the head showed no acute intracranial disease. Cervical spine CT showed no fracture. There is a minimal degenerative retrolisthesis C4 to C5. Chest x- ray showed no acute disease. Right elbow x-ray showed soft tissue swelling without fracture. She had a right elbow wound where in she said that in the ED they have with james in it. She is admitted to inpatient psychiatry unit for further evaluation of her psychiatric condition. Consulted for medical management. Borderline personality, PTSD - Managed by psychiatry team Sepsis, SIRS Right elbow Cellulitis versus septic arthritis - Leukocytosis 28.8, neutrophilia 85.5, tachycardia 101 - Right elbow x-ray showed soft tissue swelling without fracture - Check lactic acid, check blood cultures, check wound culture - Start vancomycin IV - Pain management with [place] for now. Reiterated with patient [place] a short- term. - Repeat labs in the morning CBC, CMP - Consult orthopedics to check for septic arthritis Seizure - Neurology consulted and recommended EEG - Restarted on Depakote - Seizure precaution Substance abuse - Patient counseled regarding IV drug use and risk for skin infection and abscesses - Verbalized understanding and reaching out for help place on rehabilitation Hypokalemia - Potassium replacement - Check potassium level perry DVT prop ambulatory Code Status Full code Discussed Condition With Patient, nursing Problem Qualifiers (1) Laceration of right elbow: Qualified Code: S51.011A - Laceration of right elbow, initial encounter Dru Germain Nov 23, 2016 16:30 La Thomas MD Nov 24, 2016 08:50
[2016-11-23 16:57] LABS: LACTIC ACID GHOST NOT REPORTABLE
[2016-11-23 17:09] LABS: HEMOGLOBIN A1a 1.3 %; HEMOGLOBIN A1b 0.9 %; HEMOGLOBIN Ao 85.1 %; HEMOGLOBIN LA1C 2.2 %; HEMOGLOBIN P3 3.7 %
[2016-11-23] MEDS: ACETAMINOPHEN/HYDROcodone 325 MG/5 MG TAB PO PRN ×2 (17:29→22:00)
[2016-11-23] MEDS: VANCOMYCIN INJ 1,000 MG in SODIUM CHLOR 0.9% 250 ML INJ 250 ML IV SCH (19:01)
[2016-11-23] MEDS: OLANZapine ODT 5 MG TAB PO SCH (20:55)
[2016-11-23] MEDS: LACTOBACILLUS ACIDOPHILUS TAB PO SCH (20:55)
--- NOTE | 2016-11-23 21:17 | EKG ---
Date Performed: 11/23/2016 Time Performed: 12:26:52 PTAGE: 41 years EKG: Sinus rhythm NORMAL ECG NO PREVIOUS TRACING DOCTOR: Dasia Taylor Interpretating Date/Time 11/23/2016 21:16:42
--- NOTE | 2016-11-23 22:33 | MG ---
cc: ALYSSA MARTINEZ MD Lab No: [id number] Date: 11/23/2016 Age: 41 Sex: F Race: DATE OF 1975 A 41-year-old with a ___ headache, seizure. Stage II sleep with spindles and K complexes at the beginning of the recording. Head jerk noted EPOCH 32. Single lead EKG showing sinus tachycardia it appears. INTERPRETATION Mainly stage II sleep throughout the recording. Clinical correlation. Alyssa Martinez MD MG/EO /9:09 PM /10:19 PM
[2016-11-24] MEDS: VANCOMYCIN INJ 1,000 MG in SODIUM CHLOR 0.9% 250 ML INJ 250 ML IV SCH ×2 (04:00→16:00)
[2016-11-24] MEDS: ACETAMINOPHEN/HYDROcodone 325 MG/5 MG TAB PO PRN ×5 (04:47→21:23)
[2016-11-24 06:26] VITALS: BP 115/60; PULSE 82; RESP 16; TEMP 98.8
[2016-11-24] MEDS: LORazepam 1 MG TAB PO PRN ×3 (07:00→21:23)
[2016-11-24] MEDS: REMOVE OLD PATCH T-DERMAL SCH (09:00)
--- NOTE | 2016-11-24 10:19 | RADRPT ---
EXAM DATE/TIME: 11/24/2016 09:24 [place] COMPARISON: ELBOW RIGHT LIMITED (AP & LAT), November 21, 2016, 18:24. INDICATIONS : Purulent drainage from left elbow. RADIATION DOSE: 11.61 CTDIvol (mGy) MEDICAL HISTORY : Hypertension. SURGICAL HISTORY : Tubal ligation. ENCOUNTER: Initial ACUITY: 1 day PAIN SCALE: 6/10 LOCATION: Right elbow TECHNIQUE: Volumetric scanning of the elbow was performed. Using automated exposure control and adjustment of t he mA and/or kV according to patient size, radiation dose was kept as low as reasonably achievable to obtain optimal diagnostic quality images. DICOM format image data is available electronically for r eview and comparison. FINDINGS: BONES: No evidence of fracture. Alignment is within normal limits. JOINTS: No evidence of joint narrowing or effusion. SOFT TISSUES: Diffuse soft tissue swelling is noted surrounding the right elbow predominantly along the extensor bullock rfaces consistent with probable cellulitis without underlying soft tissue abscess. Muscles, tendons a nd neurovascular structures are grossly unremarkable. No evidence of mass, organized fluid collection , or foreign body. CONCLUSION: 1. Diffuse soft tissue swelling surrounding the right elbow predominantly along the extensor surface consistent with probable cellulitis without underlying soft tissue abscess. 2. No acute fracture, dislocation or elbow joint effusion. Messi Kirk MD on November 24, 2016 at 10:04 Board Certified Radiologist. This report was verified electronically.
[2016-11-24] MEDS: LACTOBACILLUS ACIDOPHILUS TAB PO SCH ×2 (10:24→21:00)
[2016-11-24] MEDS: DIVALPROEX DR 500 MG TABEC PO SCH ×2 (10:24→21:00)
[2016-11-24] MEDS: NICOTINE 21 MG/24 HR PATCH T-DERMAL SCH (10:26)
--- NOTE | 2016-11-24 12:37 | MB ---
cc: MERLINE GRAHAM DATE OF CONSULTATION 11/24/2016 REASON FOR CONSULTATION Cellulitis of the right arm. HISTORY This patient is a 41-year-old female who was admitted to the [facility] on 11/21/2016. The patient has a history of a laceration of the right elbow treated with suturing and metal james. The patient was admitted to the emergency room. Apparently she fell backwards, hit her head, and started having a seizure. The patient apparently fell in shallow water. She denied any loss of consciousness. She denied any visual change or headaches. She had a laceration of her right elbow which was sutured in the emergency room. The patient was admitted to the [facility] with a diagnosis of closed head injury with a cervical strain, laceration of the right elbow and substance abuse. The patient was also on her medications for psychiatric disease. I have been asked see her in consultation regarding the same. PAST MEDICAL HISTORY Significant for: 1. Hypertension 2. Hepatitis C 3. Previous tubal ligation SOCIAL HISTORY She admits to ethanol and tobacco. Denies substance abuse. REVIEW OF SYSTEMS Noncontributory PHYSICAL EXAMINATION The patient has been sedated with pain medication. She is alert cooperative and reasonable. Her right elbow, the bandage was taken down. There has been some drainage. I cannot feel any fluctuance. There are two james that are seen right next to an abrasion. Moderate swelling is seen distally and proximally. Review of CT scan the right elbow. No fluid collection is seen. Two metallic james were seen. In this region, there is swelling that extends distally and proximally consistent with cellulitis. I have reviewed the radiologist interpretation who agrees. IMPRESSION 1. Cellulitis of the right elbow. 2. History a laceration. PLAN 1. Remove james. 2. Dressing change. 3. We will have to watch this. If an abscess develops, she might need I&D in the operating room. MD DOMINGO Cadena/ANNE /11:25 AM /12:26 PM
--- NOTE | 2016-11-24 15:24 | HHI.PR ---
Subjective Remarks In bed, says she has pain in her R elbow. With erythema and edema, same. No fever or chills. No n/v/d/c. Objective Vitals Vital Signs Date Time Temp Pulse Resp B/P Pulse Ox O2 Delivery O2 Flow Rate FiO2 11/24/16 06:26 98.8 82 16 115/60 11/23/16 18:30 16 I/O 11/23/16 11/23/16 11/23/16 11/24/16 11/24/16 11/24/16 07:00 15:00 23:00 07:00 15:00 23:00 Intake Total 0 ml 240 ml Balance 0 ml 240 ml Intake Oral 0 ml 240 ml Result Diagram: 11/23/16 0708 11/23/16 0708 Imaging Last Impressions Upper Extremity CT 11/24/16931 Signed Impressions: Service Date/Time: October 09:24 - CONCLUSION: 1. Diffuse soft tissue swelling surrounding the right elbow predominantly along the extensor surface consistent with probable cellulitis without underlying soft tissue abscess. 2. No acute fracture, dislocation or elbow joint effusion. Messi Kirk MD Head CT 11/21/161804 Signed Impressions: Service Date/Time: Monday, November 21, 2016 19:08 - CONCLUSION: No acute intracranial disease. Juan Astudillo MD Elbow X-Ray 11/21/161804 Signed Impressions: Service Date/Time: Monday, November 21, 2016 18:24 - CONCLUSION: Soft tissue swelling without fracture. Juan Astudillo MD Chest X-Ray 11/21/161804 Signed Impressions: Service Date/Time: Monday, November 21, 2016 18:21 - CONCLUSION: No acute disease. Juan Astudillo MD Cervical Spine CT 11/21/161804 Signed Impressions: Service Date/Time: Monday, November 21, 2016 19:08 - CONCLUSION: 1. No fracture. 2. There is minimal degenerative retrolisthesis C4-5. Juan Astudillo MD Objective Remarks GENERAL: This is a disheveled, well-developed patient, in no apparent distress. CARDIOVASCULAR: Regular rate and rhythm without murmurs, gallops, or rubs. RESPIRATORY: Clear to auscultation. Breath sounds equal bilaterally. No wheezes , rales, or rhonchi. GASTROINTESTINAL: Abdomen soft, non-tender, nondistended. Bowel sounds active 4. No guarding. MUSCULOSKELETAL: Lower Extremities without clubbing, cyanosis, or edema. Right elbow edema, erythema, purulent drainage, dressing in place, c/d/i NEUROLOGICAL: Awake and alert. No focal neuro deficit. Motor and sensory grossly within normal limits. Normal speech. A/P Problem List: (1) Laceration of right elbow ICD Code: S51.011A Status: Acute (2) Polysubstance abuse with drug-induced psychotic disorder, psychosis now resolved. F19.259. Status: Acute (3) Sepsis affecting skin ICD Code: A41.9 Status: Acute (4) HTN (hypertension) ICD Code: I10 Status: Chronic (5) Polysubstance abuse ICD Code: F19.10 Status: Acute Assessment and Plan Patient is a 41-year-old female with primary medical history of seizure disorder, PTSD, borderline personality, hep C, HTN who came into the hospital for complaints of headache, neck pain, left-sided chest wall pain, elbow pain after a fall. Patient states she fell backward and hit her head because of his seizure episode. Patient states she landed puddle of murky water , the ground was slippery with algae. Patient was worked up in the ED, CT of the head showed no acute intracranial disease. Cervical spine CT showed no fracture. There is a minimal degenerative retrolisthesis C4 to C5. Chest x- ray showed no acute disease. Right elbow x-ray showed soft tissue swelling without fracture. She had a right elbow wound where in she said that in the ED they have with james in it. She is admitted to inpatient psychiatry unit for further evaluation of her psychiatric condition. Consulted for medical management. Borderline personality, PTSD - Managed by psychiatry team Sepsis, SIRS Right elbow Cellulitis versus septic arthritis - Leukocytosis 28.8, neutrophilia 85.5, tachycardia 101 on 11/23 - Right elbow x-ray showed soft tissue swelling without fracture - Check lactic acid, check blood cultures, check wound culture pending - Start vancomycin IV. - Pain management with [place] for now. Reiterated with patient [place] a short- term. - Repeat labs in the morning CBC, CMP - Consult orthopedics. CT elbow rev and no abscess. Seizure - Neurology consulted and recommended EEG - Restarted on Depakote - Seizure precaution Substance abuse - Patient counseled regarding IV drug use and risk for skin infection and abscesses - Verbalized understanding and reaching out for help place on rehabilitation Hypokalemia - Potassium replacement - Check potassium level per[place] DVT prop ambulatory Code Status Full code Discussed Condition With Patient, nurse, psychiatry Dr Beach Problem Qualifiers (1) Laceration of right elbow: Qualified Code: S51.011A - Laceration of right elbow, initial encounter La Thomas MD Nov 24, 2016 15:24
[2016-11-24] MEDS ORDERED: KETOROLAC TROMETHAMINE 30 MG/ML (IVP) VIAL IV PUSH PRN (15:30)
--- NOTE | 2016-11-24 16:06 | HHI.PYPN ---
Subjective Remarks Patient is a 41-year-old woman, with 3 children, 5 grandchildren, undomiciled, with a past psychiatric history of borderline personality disorder, PTSD, methamphetamine and cannabis use disorder, previous psychiatric hospitalization, one suicide attempt via overdose about 2 years ago , no history of self-injurious behavior, past medical history of hypertension, hep C, history of seizure disorder, who was seen in the emergency department and admitted to the inpatient psychiatric unit on 11/22/2016 for psychosis in the context of substance intoxication. Patient was started on olanzapine ODT 5 mg at bedtime. Yesterday patient was followed up and was found to have had rapid resolution of psychotic symptoms. Patient had complained of right elbow pain and hospitalist was consulted for the same and psychosis noted lab results. Primary medical team evaluate patient yesterday and IV antibiotics were recommended and therefore patient was transferred to the medical/ psychiatric unit for further management. Patient was seen today with social service agency director/counselor; chart reviewed. Patient was found lying on hospital bed awake watching television, calm and cooperative in interview. Patient reports that prior to coming to the ER she had a seizure and hit her elbow stated that she was I was confused, I was thinking I was possessed. Patient states that she is a child of God and denied having any suicidal ideations when asked about her statement of wanting to jump from a bridge in the ER. Patient states that she has no thoughts of wanting to end her life and that she has children and her graduates live for. Patient admits to having had substance use) the ER and is amenable to the idea of going into rehabilitation program. Patient denies any depressed symptoms state sleeping okay aside from some pain from her right elbow laceration, energy and concentration were okay mood lately being all right. She denies any manic or psychotic symptoms at this time patient denies any suicidal or homicidal ideations, denies any perceptual disturbances. Patient reports that she is planning to go back to [place] once discharged from the hospital. Patient reports that she is currently homeless here in [place] which is why she plans to go back to [place]. Currently patient states feeling okay denies any suicidal or homicidal ideations. Preliminary blood cultures results shows no bacterial growth at this time. Labs (11/23/16): Reviewed Review of Systems Other No other somatic complaints Objective Alert: Yes [place]: Person, Place (at least), Date, Situation Mood: Calm Affect: Appropriate Memory Intact: Comment (intact on clinical exam) Hallucinations: Other (No AVH) Delusions: No Delusion Type: Other (No delusions) Suicidal: Ideation (No SI) Homicidal: Ideation (No HI) Insight/Judgment Fair insight, fair impulse control, poor judgment Remarks Patient appears stated age, found lying in hospital bed in [facility], fair hygiene, mildly disheveled, calm and cooperative with interview, fair eye contact, speech normal tone and volume and prosody. Language fluid and spontaneous. Labs Test 11/23/16 18:52 Lactic Acid Level 1.4 mmol/L Date/Time Procedure Status Source Growth 11/24/16 09:30 Gram Stain Received Wound Elbow Pending 11/24/16 09:30 Wound Culture Received Wound Elbow Pending 11/23/16 14:50 Aerobic Blood Culture - Preliminary Resulted Blood Peripheral NO GROWTH IN 1 DAY 11/23/16 14:50 Anaerobic Blood Culture - Preliminary Resulted Blood Peripheral NO GROWTH IN 1 DAY Vitals/IOs Vital Signs Date Time Temp Pulse Resp B/P Pulse Ox O2 Delivery O2 Flow Rate FiO2 11/24/16 06:26 98.8 82 16 115/60 11/23/16 06:16 95 11/22/16 10:12 Room Air Intake and Output 11/23/16 11/23/16 11/24/16 08:00 16:00 00:00 Intake Total 0 ml Balance 0 ml Assessment & Plan Problem List: (1) Polysubstance abuse with drug-induced psychotic disorder, psychosis now resolved. F19.259. (2) Cluster B personality traits, rule out personality disorder Assessment & Plan Estimated LOS: 1-3 days. Patient is a 41-year-old woman who carries a diagnoses of borderline personality disorder, PTSD, methamphetamine and cannabis use disorder was recently admitted to the inpatient unit for psychosis likely in the secondary to substance intoxication. Patient has not cleared from the intoxication, started on olanzapine ODT 5 mg by mouth at bedtime, and has had rapid resolution of psychotic symptoms. Currently patient denies any depressive manic or psychotic symptoms at this time patient denies suicidal or homicidal ideations. Patient continues with management as per primary medical team for right elbow cellulitis versus septic arthritis. If patient maintains psychiatrically stable she is likely to be discharged to continue medical follow -up and management as per primary medical team. Patient to continue olanzapine ODT 5 mg by mouth at bedtime continue Depakote 500 by mouth twice a day, brief supportive psychotherapy provided. Discharge planning in progress. Justification for Cont. Inpt. Patient with recent resolution of psychotic symptoms will require further observation of stability, continues to require medical management of Rt elbow cellulitis vs. septic arthritis. Discharge Planning In process Request HC Surrog/Guard Advoc?: No Juan Beach MD Nov 24, 2016 16:06
[2016-11-24 17:45] VITALS: BP 160/69; PULSE 102; RESP 20; TEMP 98.4; O2SAT 97
[2016-11-24] MEDS: ACETAMINOPHEN 325 MG TAB PO PRN ×2 (18:29→23:52)
[2016-11-24] MEDS: OLANZapine ODT 5 MG TAB PO SCH (21:00)
[2016-11-25] MEDS: ACETAMINOPHEN/HYDROcodone 325 MG/5 MG TAB PO PRN ×2 (03:30→10:24)
[2016-11-25] MEDS: LORazepam 1 MG TAB PO PRN ×2 (03:30→13:41)
[2016-11-25] MEDS ORDERED: PHARMACY ORDERED LAB ONE (03:45)
[2016-11-25] MEDS: VANCOMYCIN INJ 1,000 MG in SODIUM CHLOR 0.9% 250 ML INJ 250 ML IV SCH (04:00)
[2016-11-25 06:12] VITALS: BP 125/72; PULSE 60; RESP 18; TEMP 97.2; O2SAT 96
[2016-11-25 07:31] LABS: AUTOMATED NEUTROPHIL # 13.9 TH/MM3 (1.8-7.7); BASOPHIL % 0.1 % (0.0-2.0); EOSINOPHIL # 0.4 TH/MM3 (0-0.4); EOSINOPHIL % 2.4 % (0.0-4.0); HEMATOCRIT 37.3 % (35.0-46.0); HEMO FLAGS DIFF FINAL; LYMPH % 9.3 % (9.0-44.0); LYMPHOCYTE # 1.6 TH/MM3 (1.0-4.8); MEAN CORPUSCULAR HEMOGLOBIN 29.9 PG (27.0-34.0); MEAN CORPUSCULAR HGB CONC 32.9 % (32.0-36.0); MONO % 7.8 % (0.0-8.0); NEUT % 80.4 % (16.0-70.0); PLATELET COUNT 345 TH/MM3 (150-450); RED CELL DISTRIBUTION WIDTH 14.6 % (11.6-17.2); WHITE BLOOD COUNT 17.3 TH/MM3 (4.0-11.0)
[2016-11-25 07:54] LABS: ALKALINE PHOSPHATASE 74 U/L (45-117); ALT (GPT) 23 U/L (10-53); ANION GAP 8 MEQ/L (5-15); AST (GOT) 10 U/L (15-37); BICARBONATE 27.4 MEQ/L (21.0-32.0); BLOOD UREA NITROGEN 4 MG/DL (7-18); CHLORIDE 103 MEQ/L (98-107); GLOMERULAR FILTRATION RATE 141 ML/MIN (>89); POTASSIUM 4.2 MEQ/L (3.5-5.1); SODIUM (NA) 138 MEQ/L (136-145); TOTAL BILIRUBIN ADULT 0.2 MG/DL (0.2-1.0)
[2016-11-25] MEDS: DIVALPROEX DR 500 MG TABEC PO SCH (08:50)
[2016-11-25] MEDS: NICOTINE 21 MG/24 HR PATCH T-DERMAL SCH (08:50)
[2016-11-25] MEDS: REMOVE OLD PATCH T-DERMAL SCH (08:50)
[2016-11-25] MEDS: LACTOBACILLUS ACIDOPHILUS TAB PO SCH (08:50)
[2016-11-25] MEDS ORDERED: DALB1SOL IV (11:44)
[2016-11-25] MEDS ORDERED: VANCOMYCIN 1,000 MG/NS 250 ML IV SCH ×2 (12:00)
--- NOTE | 2016-11-25 12:10 | HHI.PR ---
Subjective Remarks In bed, asking for more pain meds. Says she did not get any IV pain meds for breakthrough pain. No fever or chills. Still with edema and erythema. Eating well. No n/v/d/c. Objective Vitals Vital Signs Date Time Temp Pulse Resp B/P Pulse Ox O2 Delivery O2 Flow Rate FiO2 11/25/16 06:12 97.2 60 18 125/72 96 11/24/16 17:45 98.4 102 20 160/69 97 I/O 11/24/16 11/24/16 11/24/16 11/25/16 11/25/16 11/25/16 07:00 15:00 23:00 07:00 15:00 23:00 Intake Total 240 ml 920 ml Balance 240 ml 920 ml Intake Oral 240 ml 920 ml # Voids 5 Result Diagram: 11/25/16 0711 11/25/16 0711 Imaging Last Impressions Upper Extremity CT 11/24/16 0932 Signed Impressions: Service Date/Time: October 09:24 - CONCLUSION: 1. Diffuse soft tissue swelling surrounding the right elbow predominantly along the extensor surface consistent with probable cellulitis without underlying soft tissue abscess. 2. No acute fracture, dislocation or elbow joint effusion. Messi Kirk MD Head CT 11/21/161804 Signed Impressions: Service Date/Time: Monday, November 21, 2016 19:08 - CONCLUSION: No acute intracranial disease. Juan Astudillo MD Elbow X-Ray 11/21/161804 Signed Impressions: Service Date/Time: Monday, November 21, 2016 18:24 - CONCLUSION: Soft tissue swelling without fracture. Juan Astudillo MD Chest X-Ray 11/21/161804 Signed Impressions: Service Date/Time: Monday, November 21, 2016 18:21 - CONCLUSION: No acute disease. Juan Astudillo MD Cervical Spine CT 11/21/161804 Signed Impressions: Service Date/Time: Monday, November 21, 2016 19:08 - CONCLUSION: 1. No fracture. 2. There is minimal degenerative retrolisthesis C4-5. Juan Astudillo MD Objective Remarks GENERAL: This is a disheveled, well-developed patient, in no apparent distress. CARDIOVASCULAR: Regular rate and rhythm without murmurs, gallops, or rubs. RESPIRATORY: Clear to auscultation. Breath sounds equal bilaterally. No wheezes , rales, or rhonchi. GASTROINTESTINAL: Abdomen soft, non-tender, nondistended. Bowel sounds active 4. No guarding. MUSCULOSKELETAL: Lower Extremities without clubbing, cyanosis, or edema. Right elbow edema, erythema, purulent drainage, dressing in place, c/d/i NEUROLOGICAL: Awake and alert. No focal neuro deficit. Motor and sensory grossly within normal limits. Normal speech. A/P Problem List: (1) Laceration of right elbow ICD Code: S51.011A Status: Acute (2) Polysubstance abuse with drug-induced psychotic disorder, psychosis now resolved. F19.259. Status: Acute (3) Sepsis affecting skin ICD Code: A41.9 Status: Acute (4) HTN (hypertension) ICD Code: I10 Status: Chronic (5) Polysubstance abuse ICD Code: F19.10 Status: Acute Assessment and Plan Patient is a 41-year-old female with primary medical history of seizure disorder, PTSD, borderline personality, hep C, HTN who came into the hospital for complaints of headache, neck pain, left-sided chest wall pain, elbow pain after a fall. Patient states she fell backward and hit her head because of his seizure episode. Patient states she landed puddle of murky water , the ground was slippery with algae. Patient was worked up in the ED, CT of the head showed no acute intracranial disease. Cervical spine CT showed no fracture. There is a minimal degenerative retrolisthesis C4 to C5. Chest x- ray showed no acute disease. Right elbow x-ray showed soft tissue swelling without fracture. She had a right elbow wound where in she said that in the ED they have with james in it. She is admitted to inpatient psychiatry unit for further evaluation of her psychiatric condition. Consulted for medical management. Borderline personality, PTSD - Managed by psychiatry team Sepsis, SIRS Right elbow Cellulitis versus septic arthritis - Leukocytosis 28.8, neutrophilia 85.5, tachycardia 101 on 11/23 - Right elbow x-ray showed soft tissue swelling without fracture - Check lactic acid, check blood cultures, check wound culture pending - Start vancomycin IV. - Pain management with [place] for now. Toradol IV for breakthrough pain. - Repeat labs in the morning CBC, CMP - Consult orthopedics. CT elbow rev and no abscess. -Keep arm elevated -Consult ID for recommendations. Case management also consult for assistance to see if gets approved for abx. Patient might be transferred to med /surg floor otherwise if not approved for OP IV abx. Seizure - Neurology consulted and recommended EEG - Restarted on Depakote - Seizure precaution Substance abuse - Patient counseled regarding IV drug use and risk for skin infection and abscesses - Verbalized understanding and reaching out for help place on rehabilitation Hypokalemia - Potassium replacement - Check potassium level perry DVT prop ambulatory Code Status Full code Discussed Condition With Patient, nurse, psychiatry Dr Beach Problem Qualifiers (1) Laceration of right elbow: Qualified Code: S51.011A - Laceration of right elbow, initial encounter La Thomas MD Nov 25, 2016 12:10
[2016-11-25] MEDS ORDERED: HYDR-3516 PO (12:13)
--- NOTE | 2016-11-25 12:16 | PD.CONS ---
History of Present Illness Service Infectious disease Consult Requested By Marycarmen STODDARD Reason for Consult Evaluate patient for Dalvance Rx, has RUE cellulitis Primary Care Physician Diagnoses: History of Present Illness Patient seen and examined. Records reviewed. Patient is a 41-year-old female, with known history of psychiatric and seizure disorder, presented to the hospital initially on November 21 after she fell. She apparently fell backward and hit her head when she had a seizure. [place]. She apparently sustained a wound in her right upper extremity. In the emergency room she repair over her laceration, and she was discharged on Bactrim. At that time she had mentioned that she ran out of medication for her seizure. She came back the following day, and she was having some psychiatric symptoms, and she ended up getting admitted in the psychiatric unit on November 22. Patient apparently started developing redness in her right upper extremity. Imaging study with CAT scan did not show any evidence of abscess or joint effusion, but showed evidence of cellulitis. Orthopedics saw the patient yesterday, and the james were removed. Culture of the wound shows gram-positive cocci on Gram stain. She has not been febrile. She is still complaining of significant pain in her right upper extremity. Patient is clinically doing well from the psychiatric standpoint, and being considered for discharge out of the unit. Infectious disease consultation has been requested to evaluate the patient for Dalvance as outpatient when she gets D/C from the psych unit. Review of Systems Constitutional: DENIES: Fever, Chills Eyes: DENIES: Eye pain Ears, nose, mouth, throat: DENIES: Nasal discharge, Oral lesions, Throat pain, Ear Pain, Sinus Pain Respiratory: DENIES: Cough, Shortness of breath Cardiovascular: COMPLAINS OF: Chest pain, DENIES: Palpitations Gastrointestinal: COMPLAINS OF: Constipation, DENIES: Abdominal pain, Diarrhea , Nausea, Vomiting, Difficulty Swallowing Genitourinary: DENIES: Urinary frequency, Urgency, Dysuria Musculoskeletal: COMPLAINS OF: Joint pain, Joint Swelling Integumentary: DENIES: Rash Neurologic: DENIES: Headache, Localized weakness Psychiatric: COMPLAINS OF: Anxiety, Mood changes Past Family Social History Allergies: Uncoded Allergies: PAPER TAPE (Adverse Reaction, Severe, Rash, 11/03/16) Past Medical History PTSD Borderline personality Seizures. Hepatitis C - not started on any medication and process to go to GI doctors in [place] Hypertension Past Surgical History Plates place on her left arm Tubal ligation Active Ordered Medications tylenol [place] Cogentin Antacids Benadryl Depakote Toradol Lactinex Ativan MOM Nicotine patch Zyprexa Vancomycin IV Family History Non-contributory to current ID problem Social History Occasional alcohol use Current day smoker 1 pack per day Illicit drug use, smokes cannabis, IV drug use amphetamines last use was 3 days ago - injects on the left forearm Physical Exam Vital Signs Vital Signs Date Time Temp Pulse Resp B/P Pulse Ox O2 Delivery O2 Flow Rate FiO2 11/25/16 06:12 97.2 60 18 125/72 96 11/24/16 17:45 98.4 102 20 160/69 97 Physical Exam GENERAL: Patient is a well-nourished, well-developed female, awake and alert , not in respiratory distress. SKIN: Warm and dry. No generalized rash, no ecchymoses and no evidence of embolic lesions. HEAD: Atraumatic. Normocephalic. No temporal wasting, or tenderness. EYES: [place] conjunctiva. No petechia or hemorrhage. Pupils equal, round and reactive to light. Extraocular movements full and intact. No scleral icterus. No injection or drainage. EARS, NOSE AND THROAT: Nose without bleeding or purulent nasal discharge. No sinus tenderness. Mucous membranes pink and moist. No oral lesions noted. No exudate. No oral thrush. NECK: Trachea midline. Supple and not tender, no meningeal signs CARDIOVASCULAR: Regular rate and rhythm. No murmurs, rubs or gallops heard RESPIRATORY: Clear to auscultation. Breath sounds equal bilaterally. No rales , wheezing or rhonchi ABDOMEN: Soft, non-tender, nondistended. Bowel sounds present and normoactive. No guarding. No rebound. No organomegaly. EXTREMITIES: No clubbing, cyanosis, or edema. RUE - there is a quarter size wound on the elbow with some tyellow slough, not draining and there is erythema , induration and warmth going up to the upper arm as well as going distally to the forearm. She limited ROM at elbow but able to flex the elbow joint. NO fluctuance, no crepitus. No calf tenderness. Well perfused and warm. NEUROLOGICAL: Awake and alert. Cranial nerves grossly intact. Motor grossly within normal limits. PSYCHIATRIC: Normal affect, calm and cooperative. LINE: No evidence of infection Laboratory Laboratory Tests Test 11/25/16 11/25/16 03:45 07:11 Vancomycin Level Trough 3.6 White Blood Count 17.3 Red Blood Count 4.10 Hemoglobin 12.3 Hematocrit 37.3 Mean Corpuscular Volume 91.0 Mean Corpuscular Hemoglobin 29.9 Mean Corpuscular Hemoglobin 32.9 Concent Red Cell Distribution Width 14.6 Platelet Count 345 Mean Platelet Volume 6.9 Neutrophils (%) (Auto) 80.4 Lymphocytes (%) (Auto) 9.3 Monocytes (%) (Auto) 7.8 Eosinophils (%) (Auto) 2.4 Basophils (%) (Auto) 0.1 Neutrophils # (Auto) 13.9 Lymphocytes # (Auto) 1.6 Monocytes # (Auto) 1.4 Eosinophils # (Auto) 0.4 Basophils # (Auto) 0.0 CBC Comment DIFF FINAL Differential Comment Sodium Level 138 Potassium Level 4.2 Chloride Level 103 Carbon Dioxide Level 27.4 Anion Gap 8 Blood Urea Nitrogen 4 Creatinine 0.48 Estimat Glomerular Filtration 141 Rate Random Glucose 86 Calcium Level 8.9 Total Bilirubin 0.2 Aspartate Amino Transf 10 (AST/SGOT) Alanine Aminotransferase 23 (ALT/SGPT) Alkaline Phosphatase 74 Total Protein 6.8 Albumin 2.5 Date/Time Procedure Status Source Growth 11/24/16 09:30 Gram Stain - Final Resulted Wound Elbow 11/24/16 09:30 Wound Culture - Preliminary Resulted Group A Beta Strep 11/23/16 14:50 Aerobic Blood Culture - Preliminary Resulted Blood Peripheral NO GROWTH IN 2 DAYS 11/23/16 14:50 Anaerobic Blood Culture - Preliminary Resulted Blood Peripheral NO GROWTH IN 2 DAYS Result Diagram: 11/25/16 0711 11/25/16 0711 Imaging RADIOLOGY STUDIES/FILMS REVIEWED Upper Extremity CT 11/24/16 0932 Signed Impressions: Service Date/Time: October 09:24 - CONCLUSION: 1. Diffuse soft tissue swelling surrounding the right elbow predominantly along the extensor surface consistent with probable cellulitis without underlying soft tissue abscess. 2. No acute fracture, dislocation or elbow joint effusion. Messi Kirk MD Head CT 11/21/16 1800 Signed Impressions: Service Date/Time: Monday, November 21, 2016 19:08 - CONCLUSION: No acute intracranial disease. Juan Astudillo MD Elbow X-Ray 11/21/161804 Signed Impressions: Service Date/Time: Monday, November 21, 2016 18:24 - CONCLUSION: Soft tissue swelling without fracture. Juan Astudillo MD Chest X-Ray 11/21/161804 Signed Impressions: Service Date/Time: Monday, November 21, 2016 18:21 - CONCLUSION: No acute disease. Juan Astudillo MD Cervical Spine CT 11/21/161804 Signed Impressions: Service Date/Time: Monday, November 21, 2016 19:08 - CONCLUSION: 1. No fracture. 2. There is minimal degenerative retrolisthesis C4-5. Juan Astudillo MD Assessment and Plan Assessment and Plan IMPRESSION Cellulitis RUE, has open wound/laceration from a fall G/S with [facility] - no abscess or effusion on CT; clinically no evidence of septic joint Known polysubstance abuse Seizure disorder RECOMMENDATION Patient a suitable candidate for outpatient IV Dalvance Will start process and once approved will have her go directly from psych unit on D/C to infusion clinic to get her dose I have discussed plan with Marycarmen STODDARD, psych special education case manager as well as Nathaly in infusion clinic Once everything is approved and arrangements made she can be D/C to go to the outaptient infusion clinic Thank you for this consultation Mily Hammer MD Nov 25, 2016 12:16
[2016-11-25] MEDS ORDERED: ZYPR5TAB PO (12:19)
[2016-11-25] MEDS ORDERED: DIVA500T PO (12:19)
--- NOTE | 2016-11-25 12:46 | HHI.DS ---
Psychiatry Discharge Summary Inpatient Psychiatric care?: Yes Advance Directive: No Reason Not Provided: Due to Patient Condition Mental Health AdvanceDirective: No Health Care Proxy: No Admission Admission Date Nov 22, 2016 at 11:25 Admission Diagnosis: (1) Polysubstance abuse with drug-induced psychotic disorder, psychosis now resolved. F19.259. Brief History Ms. Lynn is a 41-year-old female with a reported history of borderline personality disorder and PTSD who presents on a voluntary basis with complaints of seizure. From the ED provider notes, it appears that the patient requested psychiatric evaluation. She is not under a Fish act at the time of my evaluation. Reviewing the electronic medical record, I see no prior psychiatric contact within our system. Patient seen and examined. Chart reviewed. Case discussed with nursing staff. On my examination today, the patient presents as extremely emotionally labile. She tells me that she came down from [place] to get her niece off the streets but wound up homeless herself. She has a pronounced oriental orthodox preoccupation and insists that she is hearing spiritual voices because "I live in the supernatural." She denies any command auditory hallucinations. She initially denies any suicidal ideation but then threatens to jump off of a bridge. She feels that she is possessed with "a demon spirit." She says that she is compelled to "bash my head" against a hard object in order to relieve herself of the demon spirit. She denies any homicidal ideation. Thought process with significant loosening of associations. Speech pressured. No depressive symptoms. Remainder of the psychiatric ROS is negative. Past psychiatric history: Patient reports a history of borderline personality disorder and PTSD. She was reportedly under the care of a psychiatrist in [place] but cannot remember what drugs that she was taking. She says that she was most recently psychiatrically admitted about 2 years ago and says that she had a suicidal overdose around the same time. She denies a history of nonsuicidal self-injurious behavior. Family history: Patient reports that her family is afflicted by "every disease" in psychiatry. She says that her daughter engages in nonsuicidal self- injurious behavior. Chemical dependency history: The patient reports that she has been using methamphetamines for the last few months. She also smokes cannabis. Social history: The patient is from [place]. She is homeless. She is with 3 children. She has 5 grandchildren. Denies any or legal history. She is a Yazidism. Denies any access to guns or firearms. Tobacco Use In Past 30 Days: No Tobacco Past 30 Days Alcohol Use: 2-3 Times Per Week Hospital Course Patient is a 41-year-old woman, with 3 children, 5 grandchildren, undomiciled, with a past psychiatric history of borderline personality disorder, PTSD, methamphetamine and cannabis use disorder, previous psychiatric hospitalization, one suicide attempt via overdose about 2 years ago , no history of self-injurious behavior, past medical history of hypertension, hep C, history of seizure disorder, who was seen in the emergency department and admitted to the inpatient psychiatric unit on 11/22/2016 for psychosis in the context of substance intoxication. Patient reported that prior to coming to the ER she had a seizure and hit her elbow stated that she was I was confused, I was thinking I was possessed. Patient states that she is a child of God and denied having any suicidal ideations when asked about her statement of wanting to jump from a bridge in the ER. Patient was started on olanzapine ODT 5 mg at bedtime to target psychotic symptoms which patient was followed up and was found to have had rapid resolution of psychotic symptoms which symptoms were likely due to substance intoxication. Patient had complained of right elbow pain which hospitalist continued to follow and manage. Patient was started on IV antibiotics ( Vancomycin) and pain managed with English. Orthopedics were consulted. Patient psychiatrically clear for discharge and will discharged on Olanzapine 5mg PO HS , Depakote 500mg PO BID along with medical recommendations as per primary medical team for continued treatment of RT elbow cellulitis. Patient psychiatrically stable for discharge, no longer endorsing any symptoms that would necessitate further inpatient psychiatric care. Supportive psychotherapy provided. Patient will be discharged with medical and high school social studies teacher in place. Results Blood Pressure 125 / 72 Vital Signs Date Time Temp Pulse Resp B/P Pulse Ox O2 Delivery O2 Flow Rate FiO2 11/25/16 06:12 97.2 60 18 125/72 96 11/22/16 10:12 Room Air Laboratory Tests Test 11/23/16 11/23/16 11/25/16 11/25/16 07:08 14:41 03:45 07:11 White Blood Count 28.8 TH/MM3 17.3 TH/MM3 (4.0-11.0) (4.0-11.0) Platelet Count 465 TH/MM3 (150-450) Neutrophils (%) (Auto) 85.5 % 80.4 % (16.0-70.0) (16.0-70.0) Lymphocytes (%) (Auto) 6.1 % (9.0-44.0) Monocytes (%) (Auto) 8.2 % (0.0-8.0) Neutrophils # (Auto) 24.6 TH/MM3 13.9 TH/MM3 (1.8-7.7) (1.8-7.7) Monocytes # (Auto) 2.3 TH/MM3 1.4 TH/MM3 (0-0.9) (0-0.9) Band Neutrophils % 12 % (0-6) Monocytes % 9 % (0-8) Neutrophils # (Manual) 23.3 TH/MM3 (1.8-7.7) Platelet Estimate HIGH (NORMAL) Sodium Level 133 MEQ/L (136-145) Potassium Level 3.3 MEQ/L (3.5-5.1) Blood Urea Nitrogen 4 MG/DL (7-18) 4 MG/DL (7-18) Random Glucose 118 MG/DL (74-106) Aspartate Amino Transf 46 U/L (15-37) 10 U/L (15-37) (AST/SGOT) Cholesterol Level 208 MG/DL (120-200) LDL Cholesterol 115 MG/DL (0-99) HDL Cholesterol 83.9 MG/DL (40.0-60.0) Lactic Acid Level 2.3 mmol/L (0.4-2.0) Vancomycin Level Trough 3.6 MCG/ML (5.0-10.0) Mean Platelet Volume 6.9 FL (7.0-11.0) Creatinine 0.48 MG/DL (0.50-1.00) Albumin 2.5 GM/DL (3.4-5.0) Laboratory Results Test 11/21/16 11/23/16 18:30 07:08 Valproic Acid (Depakene) Level LESS THAN 3 MCG/ML (50-100) Hemoglobin A1c 5.1 % (4.3-6.0) Triglycerides Level 46 MG/DL (42-150) Cholesterol Level 208 MG/DL (120-200) LDL Cholesterol 115 MG/DL (0-99) HDL Cholesterol 83.9 MG/DL (40.0-60.0) Summary of Procedures No procedures this admission. Imaging Last Impressions Upper Extremity CT 11/24/1632 Signed Impressions: Service Date/Time: October 09:24 - CONCLUSION: 1. Diffuse soft tissue swelling surrounding the right elbow predominantly along the extensor surface consistent with probable cellulitis without underlying soft tissue abscess. 2. No acute fracture, dislocation or elbow joint effusion. Messi Kirk MD Head CT 11/21/161804 Signed Impressions: Service Date/Time: Monday, November 21, 2016 19:08 - CONCLUSION: No acute intracranial disease. Juan Astudillo MD Elbow X-Ray 11/21/161804 Signed Impressions: Service Date/Time: Monday, November 21, 2016 18:24 - CONCLUSION: Soft tissue swelling without fracture. Juan Astudillo MD Chest X-Ray 11/21/161804 Signed Impressions: Service Date/Time: Monday, November 21, 2016 18:21 - CONCLUSION: No acute disease. Juan Astudillo MD Cervical Spine CT 11/21/161804 Signed Impressions: Service Date/Time: Monday, November 21, 2016 19:08 - CONCLUSION: 1. No fracture. 2. There is minimal degenerative retrolisthesis C4-5. Juan Astudillo MD Pending results at discharge: No Medications # of Antipsychotic meds at D/C: 1 Approp Antipsych med options 1 - Minimum of three failed multiple trials of monotherapy. 2 - Documented plan to taper to monotherapy due to previous use of multiple meds OR cross-taper in progress at D/C. 3 - Documentation of augmentation of Clozapine. 4 - Justification other than those listed in allowable values 1-3, document here : Discharge Discharge Date: Nov 25, 2016 Discharge Diagnosis: (1) Polysubstance abuse with drug-induced psychotic disorder, psychosis now resolved. F19.259. Diagnosis: Principal (2) Laceration of right elbow Diagnosis: Secondary ICD Code: S51.011A (3) Sepsis affecting skin Diagnosis: Secondary ICD Code: A41.9 Mental Status Exam at Disch Appearance/behavior: Patient appears slightly older than stated age, fair hygiene, fair grooming, with dressing on right elbow, calm and cooperative, fair eye contact. Speech: Normal rate tone and prosody Language: Fluent and spontaneous Mood: Good Affect: Euthymic Thought process: Linear, organized, goal directed Thought content: Denies suicidal or homicidal ideation denied auditory or visual hallucinations, denies any delusions Insight: Fair Post control: Fair Judgment: Fair Alert and oriented 3 Pt Condition on Discharge: Stable Discharge Disposition: Discharge Home Discharge Instructions Diet Instructions: As Tolerated, No Restrictions Activities you can perform: Weight Bearing as Ree Scheduled Appointment: Jonatan Cruz Appointment Date: Nov 28, 2016 Appointment Time: 7:30am Discharge Time > 30 minutes Discharge/Advance Care Plan Health Problems: (1) Polysubstance abuse with drug-induced psychotic disorder, psychosis now resolved. F19.259. (2) Cluster B personality traits, rule out personality disorder Goals to promote your health * To prevent worsening of your condition and complications * To maintain your health at the optimal level Directions to meet your goals Take your medications as prescribed Follow your dietary instruction Follow activity as directed Keep your appointments as scheduled Take your immunizations and boosters as scheduled If your symptoms worsen call your PCP, if no PCP go to Urgent Care Center or Emergency Room For 21/11 questions related to your inpatient stay or results of tests pending at discharge, please contact Dr. Juan Beach at Smoking is Dangerous to Your Health. Avoid second hand smoking Problem Qualifiers (1) Laceration of right elbow: Qualified Code: S51.011A - Laceration of right elbow, initial encounter Juan Beach MD Nov 25, 2016 12:46
--- NOTE | 2016-11-25 13:34 | PD.ORT.PN ---
Subjective Subjective Remarks No significant change since yesterday. She is very concerned about pain. She wants her phone to talk to her kids. She still has some loss of motion right elbow due to pain. No new complaints of fever, abd pain or new loss of consciousness. Objective Vitals Vital Signs Date Time Temp Pulse Resp B/P Pulse Ox O2 Delivery O2 Flow Rate FiO2 11/25/16 06:12 97.2 60 18 125/72 96 11/24/16 17:45 98.4 102 20 160/69 97 I/O 11/24/16 11/24/16 11/24/16 11/25/16 11/25/16 11/25/16 06:59 14:59 22:59 06:59 14:59 22:59 Intake Total 240 ml 920 ml 600 ml Balance 240 ml 920 ml 600 ml Intake Oral 240 ml 920 ml 600 ml # Voids 5 Result Diagram: 11/25/16 0711 11/25/16 0711 Objective Remarks Walking around room, sat in bed NAD, anxious VSS RUE No dressing present, draining 1-2 cm wound right elbow near olecranon, moderate erythema in the periphery tenderness with palpation near the laceration, no purulent drainage could be expressed with palpation Elbow ROM diminished, wrist ROM intact, clocksmith 5/5 Radial pulse 2/4, good warmth hand Assessment & Plan Assessment and Plan s/p Laceration R elbow Cellulitis R upper extremity Hx seizure disorder, psychosis Previous CT scan showed no obvious effusion or abscess. Nonsurgical care at this time. Dry dressing changes daily. IV antibiotics per ID. Dr. Hammer evaluated today - poss candidate for outpatient infusions. If pain/drainage were to increase and abscess were to form despite tx w abx, consider I&D right elbow. Will follow. Genesis Egan Nov 25, 2016 13:34
--- NOTE | 2016-11-25 13:40 | HHI.PR ---
Addendum to Inpatient Note Addendum Reason: Additional Documentation Additional Information Patient was approved for Dalvance use in outpatient as per ID recommendation. Medically clear for discharge. Discuss and explained plan with patient and nursing. Plan was initiated by Dr. Thomas. DC Instruction discussed. Patient will be seen in the infusion center for Dalvance infusion and will be discharge home. (Dru Germain) Dru Germain Nov 25, 2016 13:40 La Thomas MD Nov 28, 2016 15:58
[2016-11-26] MEDS ORDERED: PHARMACY ORDERED LAB ONE (03:45)
== END 2016-11-25 15:15 | disposition home or self-care (01) | DRG 885 ==
LOC: NEPD 17:41 → NEDA 11-22 11:25 → H260 11-22 16:45 → H4EA 11-23 15:10
PROVIDERS: ADMIT Student in an Organized Health Care Education/Training Program; ATTEND Student in an Organized Health Care Education/Training Program
DX: F23 Brief psychotic disorder (principal); S09.90XA Unspecified injury of head, initial encounter; L03.113 Cellulitis of right upper limb; F22 Delusional disorders; I10 Essential (primary) hypertension; E87.6 Hypokalemia; F19.959 Other psychoactive substance use, unspecified with psychoactive substance-induced psychotic disorder, unspecified; F43.10 Post-traumatic stress disorder, unspecified; F60.3 Borderline personality disorder; F12.90 Cannabis use, unspecified, uncomplicated; F17.210 Nicotine dependence, cigarettes, uncomplicated; G40.909 Epilepsy, unspecified, not intractable, without status epilepticus; S16.1XXA Strain of muscle, fascia and tendon at neck level, initial encounter; S51.011A Laceration without foreign body of right elbow, initial encounter; W19.XXXA Unspecified fall, initial encounter; Z59.0 Homelessness; Z79.899 Other long term (current) drug therapy; Z91.5 Personal history of self-harm; Z98.51 Tubal ligation status
CPT/HCPCS: 12001; 70450; 71010; 72125; 73070; 73200; 80048; 80053; 80061; 80076; 80164; 80202; 80307; 83036; 83605; 84443; 84703; 85007; 85025; 85027; 85610; 85730; 87040; 87070; 87205; 90471; 90714; 93005; 95819; 96372; J1200; J1630; J2060; J3370; J3410; J7050